=== PATIENT | male | born 1970 | race Caucasian/White ===

== ENCOUNTER 2025-05-19 10:19 | Outpatient (AMB) | payer OTHER, SELFPAY ==
--- NOTE | 2025-05-19 10:26 | MHC.PC.OV ---
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 Allergies mushroom Allergy (Verified 05/19/25 10:30) Anaphylaxis Seasonal Allergies Allergy (Verified 05/19/25 10:30) Itchy Eyes Medication List - Last Reconciled 05/19/25 by PIEDAD Blackburn acyclovir 400 mg PO BID albuterol sulfate 90 mcg/actuation (Ventolin HFA) 2 puffs inhalation Q6H PRN amlodipine 2.5 mg PO DAILY xwsltwb-voligjcdzifpf-uqypngsz 250-250-65 mg (Excedrin Migraine) 1 tab PO Q4-6H PRN coenzyme Q10 50 mg PO DAILY eplerenone 50 mg PO BID ibuprofen 200 mg PO Q6H PRN insulin regular hum U-500 conc (Humulin R U-500 (Concentrated) Insulin) subcutaneously 2 times a day; per sliding scale losartan 100 mg PO DAILY magnesium 200 mg PO DAILY metformin ER (Glucophage XR) 1,000 mg PO BID montelukast 10 mg PO DAILY multivitamin (Daily Multi-Vitamin tablet) 1 tab PO DAILY pravastatin 40 mg PO DAILY Saccharomyces boulardii (Daily Probiotic (S. boulardii)) 250 mg PO BID Tobacco use date assessed: 05/19/25 Dental Screening Dental Screen Date: 05/19/25 Did you have a dental visit in the last 12 months?: Yes Did you have a dental problem in the last 6 months where you did not have access to dental care?: No Was dental information given to patient?: Patient has dentist HPI HPI Comments History of Present Illness Details This is a 55-year-old male with a past medical history of type 2 diabetes, osteoarthritis, hypertension, obesity, asthma, hepatic steatosis and migraines presenting to establish care. He transferred from Dr. Gonzales. Transfer records have not been received yet though he did sign a release. Type 2 diabetes-diagnosed in 2004. Family history of type 2 diabetes in his maternal uncle. He was previously treated with metformin, glimepiride and Byetta. He developed pancreatitis, and Byetta was discontinued. He is followed by endocrinology at [facility]. He has a Dexcom G7 device. His G SD for the past 14 days of 7.8%. Denies recent episodes of hypoglycemia. He takes metformin extended release 1000 mg twice a day and Humulin U 500 sliding scale twice daily. He takes 1 dose around 04:30 and another around 16:00: Mornin-100 takes 60 units 101-150 75 units 151-200 80 units 201-250 85 units 251-300 90 units Over 301 95 units Evening: Same as morning but add 10-15 units for a carb heavy meal or celebration Eye exam is up-to-date. No known diabetic complications. Asthma is stable. He uses albuterol as needed and takes Singulair 10 mg daily. He had a colonoscopy in March 2025. He reports it was normal, and he was told to repeat it in 10 years. Hypertension is treated with losartan 100 mg daily, eplerenone 50 mg twice daily and amlodipine 2.5 mg daily. Patient says he had an echocardiogram done a month ago at [facility]. He says it was normal. Patient says it was ordered because his PCP did not EKG that showed a left bundle branch block. He is on pravastatin 40 mg daily for hyperlipidemia. He has a consult scheduled with sleep Medicine. He has no known history of obstructive sleep apnea. He has chronic fatigue. He is long COVID. He experiences chronic fatigue, brain fog, bilateral tinnitus since COVID-19 infection 4 years ago. His last PCP was in the process of referring him to a long COVID clinic. He would like this referral. He endorses right neck/shoulder pain for the past 13 years. Massage helps. He has a history of bilateral rotator cuff repairs at [facility]. He endorses chronic right knee pain associated with stiffness and difficulty going up and downstairs. He also endorses chronic left ankle and foot pain associated with prior injury. Apparently he broke the left ankle and foot 4 times in the past playing rugby. He sees Dr. Santana. He has custom orthotics. ROS: Constitutional: No unexplained weight loss, fever, chills or night sweats. Eyes: No vision changes, blurry vision, double vision, eye pain, eye redness, eye discharge. ENT: No hearing loss, sneezing, congestion, runny nose or sore throat. Respiratory: No shortness of breath, cough or sputum production. Cardiovascular: No chest pain, chest pressure or chest discomfort. No palpitations . +chronic bilateral lower extremity edema. Gastrointestinal: No anorexia, nausea, vomiting or diarrhea. No abdominal pain or blood in stool. Genitourinary: No dysuria, hematuria, urinary frequency. Neurologic: No headache, dizziness, syncope, unilateral weakness, ataxia, numbness or tingling in the extremities. Musculoskeletal: No muscle pain, back pain, joint pain or swelling. Hematologic/Lymphatics: No bleeding or bruising. No painful lymph nodes. Skin: No rash or itching. Endocrine: No cold or heat intolerance. No polyuria or polydipsia. Psychiatric: No depression or anxiety. No SI/HI. Physical exam: Constitutional: Alert, in no distress. Neck: Supple, Full range of motion. No lymphadenopathy. No palpable thyroid masses. Respiratory: Clear to auscultation. Cardiovascular: S1 S2 regular. No murmurs. No carotid bruits. Neurologic: No focal neurological deficits. Musculoskeletal Full range of motion of the cervical spine. No midline spinal tenderness. Bilateral empty can maneuver. Shoulders nontender to palpation. Shoulder strength 5/5 bilaterally. Full range of motion of the knees. No knee swelling. Psychiatric: Normal mood and affect Extremities: Bilateral 1+ lower extremity edema [facility] Medical History (Updated 05/19/25 @ 13:54 by PIEDAD Blackburn) Mild intermittent asthma Genital herpes Class 3 obesity Pure hypercholesterolemia COVID-19 long hauler Abnormal EKG Left knee pain Left foot pain Right knee pain Right shoulder pain Cervicalgia Essential hypertension Type II diabetes with exterminator use of insulin Family History Brother Alcoholism Substance abuse Social History Housing: Apartment Alcohol intake: current Patient Tobacco Use Status: Never used Tobacco e-Cigarette/Vaping Use: Never Used Second Hand Smoke Exposure: No service: No Current occupational status: employed 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 1. Little interest or pleasure in doing things: not at all 2. Feeling down, depressed, or hopeless: not at all 3. Trouble falling or staying asleep, or sleeping too much: not at all 4. Feeling tired or having little energy: nearly every day 5. Poor appetite or overeating: not at all 6. Feeling bad about yourself - or that you are a failure or have let yourself or your family down: not at all 7. Trouble concentrating on things, such as reading the newspaper or watching television: not at all 8. Moving or speaking so slowly that other people could have noticed. Or the opposite - being so fidgety or restless that you have been moving around a lot more than usual: not at all 9. Thoughts that you would be better off or of hurting yourself in some way: not at all Total score: 3 Depression Screening Interpretation: Negative Depression Screening Done: Yes 78187 - PHQ-9 Billing: Yes Source: Developed by Drs. Thanh Dewitt, Betina Munoz, Iker Hernandez and colleagues, with an educational patti from [employer]. Thrive Questionnaire Date Thrive assessed: 05/19/25 I am a: Patient What is your living situation today?: I have a steady place to live Within the past 12 months, did the food you bought not last and you didn't have the money to get more?: Never true Within the past 12 months, did you worry whether your food would run out before you got money to buy more?: Never true Do you have trouble paying for medicines?: No Do you have trouble getting transportation to medical appointments?: No Do you have trouble paying your heating and electricity bill?: No Do you have trouble taking care of your child, family member or friend?: No Do you have trouble with day-to-day activities such as bathing, preparing meals, shopping, managing finances, etc.?: No Are you currently unemployed and looking for a job?: No Are you interested in more education?: No Please select the resources that you would like help with: None Currently or been in a relationship where the following occur: No concerns reported THRIVE Score: 0 AUDIT C Alcohol Use Questionnaire (AUDIT-C) 1. How often do you have a drink containing alcohol?: Monthly or less 2. How many drinks containing alcohol do you have on a typical day when you are drinking?: 1 or 2 3. How often do you have six or more drinks on one occasion?: Never Total Score: 1 CLIFF-7 AMB Questionnaire CLIFF-7 Date CLIFF - 7 assessed: 05/19/25 Feeling nervous, anxious, or on edge: 0 = Not at all Not being able to stop or control worryin = Not at all Worrying too much about different things: 0 = Not at all Trouble relaxin = Not at all Being so restless that it is hard to sit still: 0 = Not at all Becoming easily annoyed or irritable: 0 = Not at all Feeling afraid as if something awful might happen: 0 = Not at all Total CLIFF-7 score (0-4 normal; 5-9 mild; 10-14 moderate; 15-21 severe): 0 Source: Developed by Drs. Thanh Dewitt, Betina Munoz, Iker Hernandez and colleagues, with an educational patti from [employer]. CLIFF-7 Assessment Billing CLIFF-7 Assessment Tool: CLIFF-7 Assessment 25980 Physical exam (Primary Care) Vital Signs: Last Vital Signs Temp 97.5 F 05/19/25 10:39 Pulse 85 05/19/25 10:39 Resp 16 05/19/25 10:39 BP 128/74 05/19/25 10:39 Pulse Ox 95 05/19/25 10:39 Oxygen Delivery Method Room Air 05/19/25 10:39 BMI result Body Mass Index 44.7 Tobacco/Smoking Status: Tobacco use Status Tobacco use date assessed 05/19/25 05/19/25 10:43 Patient Tobacco Use Status Never used Tobacco 05/19/25 10:43 e-Cigarette/Vaping Use Never Used 05/19/25 10:43 PHQ-9: PHQ-9 Score PHQ-9: Total score 3 05/19/25 10:52 Depression Screening Interpretation: Negative Thrive Assessment: Date of Thrive Assessment Date Thrive assessed 05/19/25 05/19/25 10:28 Currently or been in a relationship where the following occur: No concerns reported Office Procedures EKG Details: EKG shows normal sinus rhythm with left anterior fascicular block and minimal voltage criteria for LVH, 77 beats per minute 52212-[id number], Complete Coding Level of Care Code New Pt Level 5 (48125) Complex EM visit Add On G2211 Diagnoses COVID-19 remi gould U09.9 Essential hypertension I10 Abnormal EKG R94.31 Type II diabetes with half-way use of insulin E11.9; Z79.4 Cervicalgia M54.2 Right shoulder pain M25.511 Right knee pain M25.561 Left foot pain M79.672 Left knee pain M25.562 Pure hypercholesterolemia E78.00 CPT Codes EKG - CPT: 80817-Ksyirpivwgvnrwdji, Complete ([id number]) Additional Codes CLIFF-7 Assessment Billing - CLIFF-7 Assessment Tool: CLIFF-7 Assessment 41853 ([id number]) PHQ-9 - 49715 - PHQ-9 Billing: Yes ([id number]) Time Spent (min) 62 Comment Direct patient care, completing documentation, placing orders Assessment & Plan Assessment & Plan (1) COVID-19 remi gould: Code(s): U09.9 - Post COVID-19 condition, unspecified Category: Medical Plan: Refer to [facility] clinic. (2) Essential hypertension: Code(s): I10 - Essential (primary) hypertension Category: Medical Plan: Controlled. Continue current regimen. Continue efforts at weight loss and low-sodium diet. (3) Abnormal EKG: Code(s): R94.31 - Abnormal electrocardiogram [ECG] [EKG] Category: Medical Plan: Patient reports having a normal echocardiogram at [facility] a month ago. I am waiting on his transfer records. Discussed left anterior fascicular block. Denies anginal symptoms. I will check a coronary artery calcium CT. 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 We discussed immunizations recommended. Followed by endocrinology. Continue current medication per endocrinology. (5) Cervicalgia: Code(s): M54.2 - Cervicalgia Category: Medical (6) Right shoulder pain: Code(s): M25.511 - Pain in right shoulder Category: Medical (7) Right knee pain: Code(s): M25.561 - Pain in right knee Category: Medical (8) Left foot pain: Code(s): M79.672 - Pain in left foot Category: Medical (9) Left knee pain: Code(s): M25.562 - Pain in left knee Category: Medical (10) Pure hypercholesterolemia: Code(s): E78.00 - Pure hypercholesterolemia, unspecified Category: Medical Plan: Check lipid profile. Recommended Mediterranean diet. Continue pravastatin. Plan X-ray ordered for evaluation of musculoskeletal sons. We will discuss referral to physiatry/Orthopedics and Physical therapy based on results. Follow up in 6 weeks. Orders: Orders Comprehensive Met. Panel Today E11.9 - Type 2 diabetes mellitus without complications, I10 - Essential (primary) hypertension, Z79.4 - skilled nursing (current) use of insulin Lipid Panel Today E11.9 - Type 2 diabetes mellitus without complications, E78.5 - Hyperlipidemia, unspecified, I10 - Essential (primary) hypertension, Z79.4 - skilled nursing (current) use of insulin TSH reflex Free T4 Today E11.9 - Type 2 diabetes mellitus without complications, I10 - Essential (primary) hypertension, Z79.4 - skilled nursing (current) use of insulin Complete Blood Count no Diff Today E11.9 - Type 2 diabetes mellitus without complications, I10 - Essential (primary) hypertension, Z79.4 - skilled nursing (current) use of insulin XR cervical spine 4V Today M25.511 - Pain in right shoulder, M54.2 - Cervicalgia XR shoulder RT min 2V Today M25.511 - Pain in right shoulder CT Coronary Calcium Score Today E11.9 - Type 2 diabetes mellitus without complications, I10 - Essential (primary) hypertension, R94.31 - Abnormal electrocardiogram [ECG] [EKG], Z79.4 - remote 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 (current) use of insulin Microalbumin, Random (w Creat) Today E11.9 - Type 2 diabetes mellitus without complications, I10 - Essential (primary) hypertension, Z79.4 - skilled nursing (current) use of insulin Hemoglobin A1c Today E11.9 - Type 2 diabetes mellitus without complications, I10 - Essential (primary) hypertension, R73.9 - Hyperglycemia, unspecified, Z79.4 - remote 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
[2025-05-19 10:39] VITALS: BP 128/74; PULSE 85; RESP 16; TEMP 36.4; O2SAT 95; BMI 44.7
--- OUTSIDE RECORDS SUMMARY | 2025-05-19 11:37 | XMS_ITS | Continuity of Care Document ---
Author Organization [facility] Address [address] [place] [address] Insurance Providers Payer Plan Claims Address Claims Phone Policy Number Group Number Relation Employer Guarantor Name Guarantor Guarantor Address Guarantor Phone [employer] D TAYLOR F[facility] [facility] [address], [place] [address] [id number] [facility] [address] [facility] [address], [place] [address] [id number] Self Timmy Fernández 1970 [address] [id number] Problems Unknown Problems Results Test Result Date/Time Value / Unit Interp. Refere nce Range Comp. Metabolic Panel (14)[3 02723] Collected: 10/14/2024 03:02 PM Specimen Received: 10/14/2024 05:00 AM Source: [facility] Glucose [[id number]] 10/15/2024 03:26 AM 76 mg/dL 70-99 mg/dL BUN [159606] 10/15/2024 03:26 AM 12 mg/dL 6-2 4 mg/dL Creatinine [113538] 10/15/2024 03:26 AM 0.80 mg/dL 0.76-1.27 mg/dL eGFR [176569] 10/15/2024 03:26 AM 105 mL/min/1.73 >59 mL/min/1.73 BUN/Creatinine Ratio [536071] 10/15/2024 03:26 AM 15 9-20 Sodium [145697] 10/15/2024 03:26 AM 140 mmol/L 134-144 mmol/L Potassium [739022] 10/15/2024 03:26 AM 4.6 mmol/L 3.5-5.2 mmol/L Chloride [931124] 10/15/2024 03:26 AM 102 mmol/L 96-106 mmol/L Carbon Dioxide, Total [701064] 10/15/2024 03:26 AM 24 mmol/L 20-29 mmol/L Calcium [352388] 10/15/2024 03:26 AM 9.6 mg/dL 8.7-10.2 mg/dL Protein, Total [184231] 10/15/2024 03:26 AM 6.5 g/dL 6.0-8.5 g/dL Albumin [701768] 10/15/2024 03:26 AM 4.2 g/dL 3.8-4.9 g/dL Globulin, Total [655116] 10/15/2024 03:26 AM 2.3 g/dL 1.5-4.5 g/dL Bilirubin, Total [483360] 10/15/2024 03:26 AM 0.5 mg/dL 0.0-1.2 mg/d L Alkaline Phosphatase [510000] 10/15/2024 03:26 AM 65 IU/L 44-121 IU/L AST (SGOT) [298225] 10/15/2024 03:26 AM 27 IU/L 0-40 IU/L ALT (SGPT) [340523] 10/15/2024 03:26 AM 39 IU/L 0-44 IU/L Lipid Panel[917625] Collected: 10/14/2024 03:02 PM Specimen Received: 10/14/2024 05:00 AM Source: [facility] Cholesterol, Total [[id number]] 10/15/2024 03:26 AM 130 mg/dL 100-199 mg/d L Triglycerides [657733] 10/15/2024 03:26 AM 123 mg/dL 0-149 mg/dL HDL Cholesterol [920125] 10/15/2024 03:26 AM 38 mg/dL L >39 mg/dL VLDL Cholesterol Nitesh [536199] 10/15/2024 03:26 AM 22 mg/dL 5-40 mg/dL LDL Chol Calc (NIH) [143973] 10/15/2024 03:26 AM 70 mg/dL 0-99 mg/dL Albumin/Creatinine Ratio,Uri ne[236416] Collected: 10/14/2024 03:02 PM Specimen Received: 10/14/2024 05:00 AM Source: [facility] Creatinine, Urine [[id number]] 10/15/2024 11:09 PM 110.1 mg/dL Not Estab. m g/dL Albumin, Urine [152749] 10/15/2024 10:53 PM 15.6 ug/mL Not Estab. ug/mL Alb/Creat Ratio [928739] 10/15/2024 11:09 PM 14 mg/g creat 0-29 mg/g creat Normal: 0 - 29 Moderately in creased: 30 - 300 Severely increased: >300 Hemoglobin A1c[269507] Collected: 10/14/2024 03:02 PM Specimen Received: 10/14/2024 05:00 AM Source: [facility] Hemoglobin A1c [[id number]] 10/15/2024 03:39 AM 7.6 % H 4.8-5.6 % . Prediabetes: 5.7 - 6.4 Adry betes: >6.4 Glycemic control for adults with diabetes: 7.0 C-Peptide, Serum[[id number]] Collected: 10/14/2024 03:02 PM Specimen Received: 10/14/2024 05:00 AM Source: [facility] C-Peptide, Serum [[id number]] 10/15/2024 12:58 PM 0.3 ng/mL L 1.1-4.4 ng/m L C-Peptide reference interval is for fasting patients. Allergies, adverse reactions, alerts No known allergies and adverse reactions Medications No administered medications reported Vital Signs No vital signs reported Social History No smoking Hx information available
--- OUTSIDE RECORDS SUMMARY | 2025-05-19 11:37 | XMS_ITS | Clinical Summary ---
Author Organization [facility] Address [address] [facility] [address] [place] [phone] Phone Care Team Providers Care Manifest/Order Organizer Print Orders Name Role Phone Saw Gonzales MD Primary Care Provider + Allergies Active Allergy Reactions Criticality Noted Date Comments Canagliflozin Other (See Comments) 07/09/2023 [facility] Dust Itching,Rash,Sneezing Low 06/22 Chlorthalidone 07/09/2023 hyperglycemic Exenatide Other (See Comments) 10/26/2018 pancreatitis Morphine Itching 07/09/2023 Mushroom Shortness Of Breath High 07/09/2023 Pioglitazone Weight Gain Low 07/09/2023 Pollen Extracts 07/09/2023 Medications losartan (COZAAR) 100 MG tablet Take 1 tablet by mouth daily. 07/16/20 22 Active amLODIPine (NORVASC) 2.5 MG tablet Take 2.5 mg by mouth daily. Active pravastatin (PRAVACHOL) 40 MG tablet Take 40 mg by mouth daily. Active eplerenone (INSPRA) 50 MG tablet Take 50 mg by mouth 2 (two) times a day. Active montelukast (SINGULAIR) 10 mg tablet Take 10 mg by mouth nightly at bedtime. Active albuterol 90 mcg/actuation inhaler Inhale 2 puffs into the lungs every 6 (six) hours as needed. Active DEXCOM G7 SENSOR DeviIndications: Type 2 diabetes mellitus with hyperglycemia, with long-term current use of insulin 1 each by Miscellaneous route Every 10 Days. 9 each 3 08/12/20 24 Active metFORMIN (GLUCOPHAGE-XR) 500 MG 24 hr tabletIndication s:Type 2 diabetes mellitus with hyperglycemia, with long-term current use of insulin Take 2 tablets (1,000 mg total) by mouth 2 (two) times a day before meals. 360 tablet 3 10/19/19 25 Active insulin regular U-500 CONC (HUMULIN R, KWIKPEN) 500 unit/mL (3 mL) subcutaneous injection penIndications:T ype 2 diabetes mellitus with hyperglycemia, with long-term current use of insulin INJECT SUBCUTANEOUSLY 95 TO 115 UNITS DAILY BEFORE BREAKFAST AND 65 TO 85 UNITS DAILY BEFORE DINNER, PLUS FIVE UNITS TO PRIME PEN WITH EACH DOSE 36 mL 3 10/29/19 25 Active Active Problems Problem Noted Date Diagnosed Date Hypercholesterolemia 07/17/2023 07/17/2023 Hypertension 07/17/2023 07/17/2023 Type 2 diabetes mellitus wit h hyperglycemia, with long-term current use of insulin 07/17/2023 07/17/2023 Assessment & Plan (02/24/2025 9:57 PM EDT): Control remains suboptimal but improved with average glucose 187, GMI 7.8, in target 43% of the day. No frequent or severe hypoglycemia. He lost another 6 pounds since September, lost altogether 21 pounds off of maximum weight of 330 pounds. Although we were unable to get written records from 2011 patient is pretty sure that he had pancreatitis while on Byetta for about 5 years. For this reason I would not recommend rechallenging with a GLP-1 or Mounjaro. His C-peptide level was low with blood sugar in the 70s back in 09/2024. Eliceo 65 antibody was undetectable in 12/2024. He has blood sugar trends by CGM remain the same duke phenomenon between 4:30 AM to 6 AM, trending down to the 70s by noon and trending up after the evening meal from 6 PM to midnight and stays high over 200s overnight. Patient is using U-500 insulin by sliding scale starting at 70 units at 4:30 AM and 85 units at 4:30 PM, increasing dose by 5 units for every 50 points of blood sugar over 100. He remains on max dose of metformin as well. -Decrease a.m. sliding scale by 10 units to prevent lows by noon -Move 4:30 PM U-500 insulin to noontime because of the late effect of U-500 and try to improve blood sugars late p.m. -Review CGM download in 2 weeks -If no improvement in blood sugar in relation to the evening meal, would add rapid acting insulin 15 minutes before the evening meal. -Reviewed symptoms, prevention and treatment of hypoglycemia. -Call with blood sugar problems Assessment & Plan (10/19/2024 11:15 AM EST): Control continues to improve based his dexcom G7 sensor download. No frequent or severe hypoglycemia. He has found that if he takes his insulin about 90 minutes prior to meals this is doing well to help prevent prandial glucose spikes, especially in the morning with the duke phenomenon as well. Will have him continue to do this. Will look into getting his records from [facility] from 2011 to see if it is possible to determine the cause of his pancreatitis or if he truly had pancreatitis. If he didn't or the pancreatitis was caused by gallstones we can consider the use of a GLP-1 to help with his glucose levels and also possible weight loss. Continue to work on eating healthy and trying to be active as possible. To call or message with any issues managing is glucose levels. Up to date with [facility] [employer]. He has been having an issue with a callous on the bottom of his left foot. Will send a referral for him to see podiatry to have this taken care of. Assessment & Plan (04/15/2024 12:47 AM EDT): Control continues to improve based upon reviewing the [employer] data on the patient's phone. He does not want to download the andrew 3 as his insurance is charging him $100 to review the data. No frequent or severe hypoglycemia. He has been working on taking his breakfast insulin 2 hours prior to eating. This is doing well with helping to prevent such high spikes in the morning after breakfast. Will have him continue to do this. Continue to work on eating healthy and trying to be active as possible. To call or message with any issues managing is glucose levels. Up to date with opho. Will do lab with PCP at next visit Assessment & Plan (01/22/2024 10:47 PM EDT): Control improved by andrew 3 CGM download. Average glucose 193, GMI 7.9%. 42% in target but 45% still high. Much less very high blood sugars at 13% and no frequent lows. Trends are similar with going up between 3 AM to 6 AM then best blood sugars by noon and then another rise by 3 PM and further rise by 9 PM. Patient is using U-500 insulin 115 units before breakfast and between 65 to 85 units before dinner. He tries to inject 45 to 60 minutes before start of the meal with better effect than 30 minutes before meal. He had 35 pounds weight gain when he was using Actos with insulin in the past and had pancreatitis on Byetta. He reports severe yeast infection with Invokana in the past. He was wondering if he could try Mounjaro ( Nepbound) but I did not feel comfortable trying this since similar side effect profile when it comes to the pancreas. His paternal grandmother of pancreatitis. We did talk about maybe trying Jardiance when his blood sugars are better but he still has risk of yeast infection. For now we decided to adjust his U-500 insulin by adding 10 to 15 units before lunch. If having low sugars by lunchtime he would decrease the breakfast insulin by 5 to 10 units. If late p.m. blood sugars did not improve by adding lunch insulin he would increase the dinner insulin by 5 to 10 units. Will continue current metformin dose. Encouraged to call with blood sugar problems. He had blood work last week by PCP, waiting for results. Blood work and office visits are quite costly to patient at present and he would like to limit lab orders. Reviewed symptoms, prevention and treatment of hypoglycemia. Eye exam scheduled for tomorrow. Urine microalbumin was normal in 08/2023. LDL at target, HDL low, triglycerides up at 314 while normal thyroid function and B12 was normal in 08/2023. Assessment & Plan (09/16/2023 9:12 AM EST): Control is improving based upon the patient's freestyle andrew 2 sensor download. No frequent or severe hypoglycemia. Discussed upgrading his andrew from the 2 to the 3 which will allow for continuous reading without having to scan. Will send the prescription to his pharmacy. Will adjust his insulin higher in the evening to help with the highs after dinner. Continue to work on eating healthy and trying to be active as possible. To call or message with any issues managing is glucose levels. Up to date with nieves. Had blood work done at [facility] will call to get results Assessment & Plan (07/17/2023 4:06 PM EDT): He was diagnosed with type 2 diabetes 18 years ago (2004) on blood work after having a two week period of dizziness. He has hypoglycemia unawareness but no other long-term complications from history. His control is suboptimal based upon his freestyle andrew 2 sensor download. He is currently using metformin and U-500 insulin. He has been on metformin since his diagnosis. He has been on U-500 insulin for the last 18 months. When initially diagnosed he was put on metformin, glipizide, and byetta. His A1C was 5.1% while on this. While using byetta he developed acute pancreatis based upon his blood work. Once stopping the byetta the pancreatitis resolved. He was also taken off of glipizide. He was then switched to insulin and within a 3 month period gained 40 pounds. He was then put on invokana and developed severe gential infections for 2 years. The invokana was stopped and actos was started. He gained 30 pounds in 3 months. With this additional weight gain the actos was stopped. He was then started on U-500 insulin and has been on for the last 18 mounths. He is using the U-500 through a sliding scale : BG 70-100 he would take 35 units, BG 100-150 take 60 units, BG 150-200 take 65 units, BG 201-250 take 70 units, 251-300 take 75 units, and above 300 take 90 units. He has been loosely following this scale and adding 10 units at breakfast and dinner to try and manage his levels. He has had some severe lows to which he doesn't feel and only knows of the low due to his andrew sensor. He will correct with juice or glucose tablets and then is fine. Discussed the importance of preventing low glucose levels especially with lack of symptoms. Will try changing his U-500 insulin dosing from a sliding scale to set dosing twice a day. Will have him take 90 units in the morning and 60 units at dinner. He will continue with this dosing for at least a week. He will send a message through the patient gateway with any issues with the dosing change. Continue to work on eating healthy and being active. Up to date with ophtho. Labs ordered today. 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 It is thought it is due long haul covid symptoms. 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 He has a friend who is working with a university medical [facility] in [place] to help with their long haul covid symptoms. Discussed has he taken a look at the clinic in [place]. He didn't realize there was a clinic there. I will send him the clinic information through the gateway and he will look into this Encounters Date Type Department Care Team Description 02/21/2025 8:20 AM EDT Office Visit [facility] [address] [place] [address] Lupe Hooks MD Type 2 diabetes mellitus with hyperglycemia, with long-term current use of insulin (Primary Dx); assisted current use of insulin; assisted current use of oral hypoglycemic drug 02/17/2025 Orders Only [facility] [address] [place] [address] Provider, MD Elva from Last 3 Months Social History Tobacco Use Types Packs/Day Years Used Date Smoking Tobacco: Never Smokeless Tobacco: Never Tobacco Cessation:Counseling Given: Not Answered Alcohol Use Standard Drinks/Week Comments Yes 0 (1 standard drink = 0.6 oz pur e alcohol) occasional Education Answer Date Recorded Are you interested in more education? Not on esthela e 03/13/2023 Are you concerned about learning? Not on file 03/13/2023 No 03/13/2023 No 03/13/2023 Digital Access Answer Date Recorded No 03/13/2023 No 03/13/2023 Reliable internet access at home? Not on file 03/13/2023 Device with a working camera? Not on file Sex and Gender Information Value Date Recorded Sex Assigned at Not on file Legal Sex Male 10:22 AM EDT Gender Identity Not on file Sexual Orientation Not on file Last Filed Vital Signs Vital Sign Reading Time Taken Comments Blood Pressure 128/70 02/21/2025 8:08 AM EDT Pulse 78 02/21/2025 8:08 AM EDT Temperature 36.3 C (97.4 F) 07/12/2024 8:00 AM EDT Respiratory Rate - - Oxygen Saturation 99% 02/21/2025 8:08 AM EDT Inhaled Oxygen Concentration - - Weight 140.4 kg (309 lb 9.6 oz) 02/21/2025 8:08 AM EDT Height 175.3 cm (5' 9.02 ) 02/21/2025 8:08 AM ED T Body Mass Index 45.7 02/21/2025 8:08 AM EDT Plan of Treatment Upcoming Encounters Date Type Department Care Team (Late st Contact Info) Description 05/24/2025 8:20 AM EDT Office Visit [facility] [address] [place] [address] [place] [address] Zaira Davies PA-C [address] [place] [phone] 11/29/2025 8:20 AM EDT Office Visit [facility] [address] [place] [address] [place] [address] Lupe Hooks MD [address] [place] [phone] [email or web address] Health Maintenance Due Date Last Done Comments Adult Td,Tdap Booster 1970 HEMOGLOBIN A1C 1970 DEPRESSION SCREENING 1982 HEPATITIS C SCREENING 01/21/1988 HIV ONE-TIME SCREENING (18-65 YEARS) 01/21/1988 PNEUMOCOCCAL VACCINES (50+ years) (1 of 2 - PCV) 1989 COLOGUARD 2015 COLONOSCOPY 2015 COLORECTAL CANCER SCREENING 2015 FIT TEST 2015 FOBT 2015 SIGMOIDOSCOPY 2015 VIRTUAL COLONOSCOPY 2015 ZOSTER VACCINES (1 of 2) 01/21/2020 DIABETIC EYE EXAM 07/17/2023 COVID-19 VACCINE ( - season) 2024 INFLUENZA VACCINE (#1) 2025 POTASSIUM LEVEL 07/08/2025 07/08/2024, 0410/2023, 09/18/2023 BLOOD PRESSURE 08/23/2025 02/21/2025 CREATININE LEVEL 10/15/2025 10/15/2024, , 01/02/2024, Additional history exists SMOKING STATUS SCREENING (Once After 26 Yrs) Completed 02/21/2025 HEPATITIS A VACCINES Aged Out No long er eligible based on patient's age to complete this topic HIB VACCINES Aged Out No longer eligi ble based on patient's age to complete this topic MENINGOCOCCAL VACCINES (ACWY) Aged Out No longer eligible based on patient's age to complete this topic MENINGOCOCCAL VACCINES (B) Aged Out N o longer eligible based on patient's age to complete this topic Medical Devices Not on file Procedures Procedure Name Priority Date/Time Associated Diagnosis Comments COMPREHENSIVE METABOLIC PANEL Routine 10/15/2024 4:48 PM EST BASIC METABOLIC PANEL Routine 07/08/2024 8:16 AM EDT from Last 3 Months or Most Recently Relevant to Health Maintenance Results * Comprehensive metabolic panel (10/15/2024 4:48 PM EST) us Historical Provider LAB BLOOD ORDERABLES Estefania l Result * Basic metabolic panel (07/08/2024 8:16 AM EDT) Saw Gonzales MD LAB BLOOD ORDERABLES Fin al Result from Last 3 Months or Most Recently Relevant to Health Maintenance Insurance O O H[place] [address] [address] HMO Care Teams Manifest/Order Organizer Print Orders Relationship Specialty Start Date End Date Saw Gonzales MD [address] [place] [address] PCP - General Internal Medicine 01/10/23 Additional Source Comments The information contained in this document represents components of the legal health record. It is not the complete legal health record.[facility]
== END 2025-05-19 11:41 | disposition home or self-care (01) ==
LOC: HO.HMCFM 10:19
PROVIDERS: PCP Physician Assistant Medical; Visit Provider Physician Assistant Medical
DX: E11.9 Type 2 diabetes mellitus without complications (principal); Z79.4 Long term (current) use of insulin; U09.9 Post COVID-19 condition, unspecified; I10 Essential (primary) hypertension; R94.31 Abnormal electrocardiogram [ECG] [EKG]; M54.2 Cervicalgia; M25.511 Pain in right shoulder; M25.561 Pain in right knee; M79.672 Pain in left foot; M25.562 Pain in left knee; E78.00 Pure hypercholesterolemia, unspecified

== ENCOUNTER → 2025-05-19 10:19 | Outpatient (BNVA) | payer OTHER, SELFPAY | PROVIDERS: PCP Physician Assistant Medical; Visit Provider Physician Assistant Medical | DX: U09.9 Post COVID-19 condition, unspecified (principal); I10 Essential (primary) hypertension; R94.31 Abnormal electrocardiogram [ECG] [EKG]; E11.9 Type 2 diabetes mellitus without complications; M54.2 Cervicalgia; M25.511 Pain in right shoulder; M25.561 Pain in right knee; M79.672 Pain in left foot; M25.562 Pain in left knee; E78.00 Pure hypercholesterolemia, unspecified; Z79.4 Long term (current) use of insulin; Z79.899 Other long term (current) drug therapy; Z13.31 Encounter for screening for depression; Z13.39 Encounter for screening examination for other mental health and behavioral disorders | CPT/HCPCS: 93005; 96127 ==

== ENCOUNTER 2025-05-28 07:55 | Outpatient (REF) | payer OTHER, SELFPAY ==
--- OUTSIDE RECORDS SUMMARY | 2025-05-24 08:20 | XMS_ITS | Encounter Summary ---
Author Organization [facility] Address [address] [facility] [address] [place] [phone] Phone Care Team Providers Care Warehouse Packer Name Role Phone Staci Garcia Primary Care Provide r Reason for Visit * Reason Comments Diabetes Mellitus Encounter Details Date Type Department Care Team (Late st Contact Info) Description 05/24/2025 8:20 AM EDT Office Visit [facility] [address] [place] [address] Zaira Davies PA-C [address] [place] [address] [email or web address] Type 2 diabetes mellitus with hyperglycemia, with long-term current use of insulin (Primary Dx) Social History Tobacco Use Types Packs/Day Years Used Date Smoking Tobacco: Never Smokeless Tobacco: Never Alcohol Use Standard Drinks/Week Comments Yes 0 [...] on file Sexual Orientation Not on file documented as of this encounter Last Filed Vital Signs Vital Sign Reading Time Taken Comments Blood Pressure 134/66 05/24/2025 8:23 AM EDT Pulse 98 05/24/2025 8:23 AM EDT Temperature - - Respiratory Rate - - Oxygen Saturation 97% 05/24/2025 8:23 AM EDT Inhaled Oxygen Concentration - - Weight 140.1 kg (308 lb 12.8 oz) 05/24/2025 8:23 AM EDT Height - - Body Mass Index 45.58 02/21/2025 8:08 AM EDT documented in this encounter Patient Instructions * Patient Instructions* Zaira Davies PA-C - 05/24/2025 8:20 AM EDT Go to [employer] to create an omnipod ID and password, and also set up [employer] account Bring a new insulin pen documented in this encounter Progress Notes * Zaira Davies PA-C - 05/24/2025 8:20 AM EDT Subjective: Patient ID: Timmy Fernández is a 55 y.o. male. In the interval since the last visit, no changes in health Hemoglobin A1C: Reviewed last A1C from 10/16 was 7.6%, has orders from new PCP. Blood glucose monitoring: using the dexcom G7, average reading is 194, time in range is 42%, time high is 42%, time veryhigh is 16%. Hypoglycemia: will start to feel low around 90. Problems with medications: none. Recent weight changes: no change. Diet : 3 meals a day, occasional HS snack of preztels and peanut butter, healthy choices, portion control is good. Activity: doing more outside but is still not as much prior to Covid. Optho: scheduled to see in June. Foot: no issues. Injection/pump site & timing:rotating on abdomen for insulin, taking 2 hour before eating, no lipohypertrophy or bruising Current Outpatient Medications Ordered in [facility]: acyclovir (ZOVIRAX) 400 MG tablet, Take 400 mg by mouth 2 (two) times a day. albuterol 90 mcg/actuation inhaler, Inhale 2 puffs into the lungs every 6 (six) hours as needed. amLODIPine (NORVASC) 2.5 MG tablet, Take 2.5 mg by mouth daily. DEXCOM G7 SENSOR Shanna, 1 each by Miscellaneous route Every 10 Days. eplerenone (INSPRA) 50 MG tablet, Take 50 mg by mouth 2 (two) times a day. insulin regular U-500 CONC (HUMULIN R, KWIKPEN) 500 unit/mL (3 mL) subcutaneous injection pen, INJECT SUBCUTANEOUSLY 95 TO 115 UNITS DAILY BEFORE BREAKFAST AND 65 TO 85 UNITS DAILY BEFORE DINNER, PLUS FIVE UNITS TO PRIME PEN WITH EACH DOSE losartan (COZAAR) 100 MG tablet, Take 1 tablet by mouth daily. metFORMIN (GLUCOPHAGE-XR) 500 MG 24 hr tablet, Take 2 tablets (1,000 mg total) by mouth 2 (two) times a day before meals. montelukast (SINGULAIR) 10 mg tablet, Take 10 mg by mouth nightly at bedtime. pravastatin (PRAVACHOL) 40 MG tablet, Take 40 mg by mouth daily. Review of Systems Constitutional: Positive for fatigue. Negative for unexpected weight change. Eyes: Positive for wears glasses. Negative for unexpected vision change. Respiratory: Negative for cough and shortness of breath. Cardiovascular: Positive for leg swelling. Negative for chest pain. Gastrointestinal: Negative for constipation and diarrhea. Genitourinary: Negative for nocturia. Neurological: Negative for numbness (tingling or paraesthesia). Psychiatric/Behavioral: Negative for sleep disturbance. Musculoskeletal: No leg cramps Objective: Physical Exam Vitals reviewed. Constitutional: Appearance: Normal appearance. Skin: General: Skin is warm. Neurological: Mental Status: He is alert and oriented to person, place, and time. Psychiatric: Mood and Affect: Mood normal. Behavior: Behavior normal. Assessment/Plan: Problem List Items Addressed This Visit Type 2 diabetes mellitus with hyperglycemia, with long-term current use of insulin - Primary Control continues to improve based his dexcom G7 sensor download. No frequent or severe hypoglycemia. With the continued variation in glucose levels discussed trying the omnipod 5 insulin pump to help regulate his glucose levels a little more. He likes the idea of trying this. Will give him an omnipod 5 starter kit from the office to try this for a couple weeks. He knows using U-500 insulin in the pump is off label use but wants to try it to see if this help. He will set up his [employer] account information and omnipod account information before the training visit. Continue to work on eating healthy and trying to be active as possible. To call or message with any issues managing is glucose levels. Up to date with nieves, scheduled to see in June. Will do labs with new PCP * Chasity Nash MD - 05/24/2025 8:20 AM EDT Subject Line: Provider Attestation I have reviewed the notes, assessments, and/or procedures performed by PIEDAD Renteria. I concur with her documentation of Timmy Fernández. documented in this encounter Miscellaneous Notes * Assessment & Plan Note - Zaira Davies PA-C - 05/26/2025 4:41 PM EDTAssociated Problem(s): Type 2 diabetes mellitus with hyperglycemia, with long-term current use of insulin Control continues to improve based his dexcom G7 sensor download. No frequent or severe hypoglycemia. With the continued variation in glucose levels discussed trying the omnipod 5 insulin pump to help regulate his glucose levels a little more. He likes the idea of trying this. Will give him an omnipod 5 starter kit from the office to try this for a couple weeks. He knows using U-500 insulin in the pump is off label use but wants to try it to see if this help. He will set up his [employer] account information and omnipod account information before the training visit. Continue to work on eating healthy and trying to be active as possible. To call or message with any issues managing is glucose levels. Up to date with nieves, scheduled to see in June. Will do labs with new PCP documented in this encounter Plan of Treatment Upcoming Encounters Date Type Department Care Team (Late st Contact Info) Description 06/29/2025 12:30 PM EDT Office Visit [facility] [address] [place] [address] Zaira Davies PA-C [address] [place] [phone] 07/22/2025 8:00 AM EDT Office Visit [facility] [address] [place] [address] Zaira Davies PA-C [address] [place] [phone] 11/29/2025 8:20 AM EDT Office Visit [facility] [address] [place] [address] Lupe Hooks MD [address] [place] [phone] documented as of this encounter Visit Diagnoses Diagnosis Type 2 diabetes mellitus with hyperglycemia, with long-term current use of insulin- Primary documented in this encounter Care Teams Warehouse Packer Relationship Specialty Start Date End Date Staci Garcia PA [address] [place] [address] [place] [address] PCP - General Physician Administrative Office Specialist 05/24/25 documented as of this encounter Additional Source Comments The information contained in this document represents components of the legal health record. It is not the complete legal health record.[facility]
--- NOTE | ~2025-05-28 | XR_ITS ---
EXAMINATION: XR ANKLE 3 OR MORE VIEWS LEFT, XR FOOT 3 OR MORE VIEWS LEFT HISTORY: M79.672 - Pain in left foot COMPARISON: There are no prior studies available for comparison. FINDINGS: Six views of the left foot and ankle are submitted. Osseous mineralization is normal. There is an old ununited fracture deformity versus an accessory ossicle at the base of the 5th metatarsal. There may be a fracture of the talus, of indeterminate age. There is severe degenerative change involving the talonavicular joint, and milder changes in the remainder of the midfoot. There is a plantar calcaneal spur. The soft tissues are unremarkable. XR/XR foot LT min 3V IMPRESSION: 1. 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 2. Possible talar fracture of indeterminate age. This could be further evaluated with CT if there is a history of an acute injury. 3. Severe degenerative change of the talonavicular joint. Electronically signed by: Thanh Walsh MD 05/30/2025 08:08 AM EDT
--- NOTE | ~2025-05-28 | XR_ITS ---
EXAMINATION: XR CERVICAL SPINE 4-5 VIEWS HISTORY: M54.2 - Cervicalgia COMPARISON: There are no prior studies available for comparison. FINDINGS: AP, lateral, bilateral oblique, and open-mouth odontoid views of the cervical spine are submitted. Osseous mineralization is normal. Seven cervical vertebral bodies are identified maintaining normal height and alignment without evidence of fracture or subluxation. There is diffuse moderate degenerative disc disease with disc space narrowing and osteophyte formation. There is narrowing of the bilateral C6-7 neural foramen secondary to facet osteoarthritis and uncovertebral joint hypertrophy. The remaining neural foramen are patent. The odontoid and lateral masses of C1 are intact. There is no prevertebral soft tissue swelling. XR/XR cervical spine 4V IMPRESSION: Degenerative changes of the cervical spine as described. Electronically signed by: Thanh Walsh MD 05/30/2025 08:11 AM EDT
--- NOTE | ~2025-05-28 | XR_ITS ---
EXAMINATION: XR ANKLE 3 OR MORE VIEWS LEFT, XR FOOT 3 OR MORE VIEWS LEFT HISTORY: M79.672 - Pain in left foot COMPARISON: There are no prior studies available for comparison. FINDINGS: Six views of the left foot and ankle are submitted. Osseous mineralization is normal. There is an old ununited fracture deformity versus an accessory ossicle at the base of the 5th metatarsal. There may be a fracture of the talus, of indeterminate age. There is severe degenerative change involving the talonavicular joint, and milder changes in the remainder of the midfoot. There is a plantar calcaneal spur. The soft tissues are unremarkable. XR/XR ankle LT min 3V IMPRESSION: 1. 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 2. Possible talar fracture of indeterminate age. This could be further evaluated with CT if there is a history of an acute injury. 3. Severe degenerative change of the talonavicular joint. Electronically signed by: Thanh Walsh MD 05/30/2025 08:08 AM EDT
--- NOTE | ~2025-05-28 | XR_ITS ---
EXAMINATION: XR SHOULDER 2 OR MORE VIEWS RIGHT HISTORY: M25.511 - Pain in right shoulder COMPARISON: There are no prior studies available for comparison. FINDINGS: Four views of the right shoulder are submitted. Osseous mineralization is normal. There are suture anchors in the humeral head. The patient is status post resection of the distal clavicle. There is no fracture or dislocation. The glenohumeral joint space is preserved. The soft tissues are unremarkable. XR/XR shoulder RT min 2V IMPRESSION: Postsurgical changes as described. Otherwise unremarkable examination of the right shoulder. Electronically signed by: Thanh Walsh MD 05/30/2025 08:01 AM EDT
--- NOTE | ~2025-05-28 | XR_ITS ---
EXAMINATION: XR KNEE 3 VIEWS RIGHT HISTORY: M25.561 - Pain in right knee COMPARISON: There are no prior studies available for comparison. FINDINGS: Four views of the right knee are submitted. Osseous mineralization is normal. There is no fracture or dislocation. There is severe osteoarthritis of the patellofemoral compartment with joint space narrowing and osteophyte formation. Milder changes are noted involving the lateral compartment. The soft tissues are unremarkable. There is no joint effusion. XR/XR knee RT 3V IMPRESSION: Osteoarthritis of the right knee as described. Electronically signed by: Thanh Walsh MD 05/30/2025 08:09 AM EDT
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
--- OUTSIDE RECORDS SUMMARY | 2025-05-28 08:00 | XMS_ITS | Clinical Summary ---
Author Organization [facility] Address [address] [facility] [address] [place] [phone] Phone Care Team Providers Care Mold Tooler Name Role Phone Staci Garcia Primary Care Provide r Allergies Active Allergy Reactions Criticality Noted Date [...] DOSE 36 mL 3 10/29/19 25 Active acyclovir (ZOVIRAX) 400 MG tablet Take 400 mg by mouth 2 (two) times a day. 05/19/20 25 Active Active Problems Problem Noted Date Diagnosed Date Hypercholesterolemia 07/17/2023 07/17/2023 Hypertension 07/17/2023 07/17/2023 Type 2 diabetes mellitus wit h hyperglycemia, with long-term current use of insulin 07/17/2023 07/17/2023 Assessment & Plan (05/26/2025 4:41 PM EDT): Control continues to improve based his dexcom [...] this help. He will set up his Admit[employer] account information and omnipod account information before the training visit. Continue to work on eating healthy and trying to be active as possible. To call or message with any issues managing is glucose levels. Up to date with nieves, scheduled to see in June. Will do labs with new PCP Assessment & Plan (02/24/2025 9:57 PM EDT): [...] Will look into getting his records from [facility] from 2011 to see if it is [...] is glucose levels. Up to date with ophtho. He has been having an issue with a callous on the bottom of his left foot. Will send a referral for him to see podiatry to have this taken care of. Assessment & Plan (04/15/2024 12:47 AM EDT): Control continues to improve based upon reviewing the andrew data on the patient's phone. He does [...] is glucose levels. Up to date with ophtho. Will do lab with PCP at next [...] glucose levels. Up to date with opho. Had blood work done at [facility] will call to get results Assessment & [...] and being active. Up to date with [facility]. Labs ordered today. He was also seen by Dr Hooks to discuss the treatment plan intermediate frame tender current use of insulin 07/17/2023 Assessment & Plan (10/19/2024 11:04 AM EST): Will maintain current Humulin R U-500 dosing halfway current use of oral hypoglycemic drug 07/17/2023 [...] working with a [facility] in [place] to help with their long haul covid symptoms. Discussed has he taken a look at the clinic in [place]. He didn't realize there was a clinic there. I will send him the clinic information through the gateway and he will look into this Encounters Date Type Department Care Team Description 05/24/2025 8:20 AM EDT Office Visit [facility] [address] [place] [address] Zaira Davies PA-C Type 2 diabetes mellitus with hyperglycemia, with long-term current use of insulin (Primary Dx) from Last 3 Months Social History Tobacco [...] Pulse 98 05/24/2025 8:23 AM EDT Temperature 36.3 C (97.4 F) 07/12/2024 8:00 AM EDT Respiratory Rate - - Oxygen Saturation 97% 05/24/2025 8:23 AM EDT Inhaled Oxygen Concentration - - Weight 140.1 kg (308 lb 12.8 oz) 05/24/2025 8:23 AM EDT Height 175.3 cm (5' 9.02 ) 02/21/2025 8:08 AM ED T Body Mass Index 45.58 02/21/2025 8:08 AM EDT Plan of Treatment Upcoming Encounters Date Type Department Care Team (Late st Contact Info) Description 06/29/2025 12:30 PM EDT Office Visit [facility] [address] [place] [address] Zaira Davies PA-C [address] [place] [id number] 07/22/2025 8:00 AM EDT Office Visit [facility] [address] [place] [address] Zaira Davies PA-C [address] [place] [phone] 11/29/2025 8:20 AM EDT Office Visit [facility] [address] [place] [address] Lupe Hooks MD [address] [place] [phone] Health Maintenance Due Date Last Done Comments [...] of 2) 01/21/2020 DIABETIC EYE EXAM 07/17/2023 INFLUENZA VACCINE (#1) 2025 COVID-19 VACCINE ( season) 2025 POTASSIUM LEVEL 07/08/2025 07/08/2024, 12/21, 09/18/2023 CREATININE LEVEL 10/15/2025 10/15/2024, , 01/02/2024, Additional history exists BLOOD PRESSURE 11/21/2025 05/24/2025 SMOKING STATUS SCREENING (Once After 26 Yrs) [...] Comprehensive metabolic panel (10/15/2024 4:48 PM EST) [facility] Provider LAB BLOOD ORDERABLES Estefania l Result * Basic metabolic panel (07/08/2024 8:16 AM EDT) Saw Gonzales MD LAB BLOOD ORDERABLES Fin al Result from Last 3 Months or Most Recently Relevant to Health Maintenance Insurance [facility] [employer] [place] [id number] [facility]UNITY [facility] Care Teams Mold Tooler Relationship Specialty Start Date End Date Staci Garcia PA [address] [place] [address] [place] [address] PCP - General Physician Flight Manager 05/24/25 Additional Source Comments The information contained in this document represents components of the legal health record. It is not the complete legal health record.[facility]
[2025-05-28 09:22] LABS: Hematocrit 43.1 % (42.0-52.0); Hemoglobin 14.4 g/dl (14.0-18.0); Mean Corpuscular HGB Conc 33.4 g/dl (31.0-36.0); Mean Corpuscular Hemoglobin 29.3 pg (27.0-33.0); Mean Corpuscular Volume 87.8 fL (80.0-98.0); NRBC Abs Auto 0.000 X10*3/uL (0.0-0.012); NRBC Pct Auto 0.0 /100WBC (0.0-0.2); Platelet Count 265 X10*3/uL (160-400); Red Blood Count 4.91 X10*6/uL (4.60-5.80); White Blood Count 10.3 X10*3/uL (4.8-10.8)
[2025-05-28 09:33] LABS: Hemoglobin A1C 209.1750 umol/L; Total Hemoglobin (HGBA1C) 3722.6084 umol/L
[2025-05-28 10:50] LABS: Alanine Aminotransferase 48 U/L (0-40); Albumin Level 4.3 g/dL (3.5-5.0); Alkaline Phosphatase 63 U/L (39-117); Anion Gap 13 (12-20); Aspartate Amino Transferase 32 U/L (5-37); Blood Urea Nitrogen 18 mg/dL (9-16); Calcium 9.2 mg/dL (8.4-10.2); Carbon Dioxide 27 mmol/L (22-29); Chloride 106 mmol/L (96-108); Cholesterol 140 mg/dL (<200); Estimated Glomerular Filt Rate > 60; HDL Cholesterol 35 mg/dL (>40); Potassium 4.3 mmol/L (3.3-5.1); Sodium 142 mmol/L (135-145); Total Protein 6.7 g/dL (6.5-8.0); Triglycerides 133 mg/dL (<150)
[2025-05-28 11:04] LABS: Prostate Specific Antigen 0.45 ng/mL (<0.05-4.0)
== END 2025-05-28 07:56 | disposition home or self-care (01) ==
LOC: HO.LAB 07:55
PROVIDERS: PCP Physician Assistant Medical; Visit Provider Physician Assistant Medical
DX: Z12.5 Encounter for screening for malignant neoplasm of prostate (principal); E11.65 Type 2 diabetes mellitus with hyperglycemia; E78.5 Hyperlipidemia, unspecified; I10 Essential (primary) hypertension; M54.2 Cervicalgia; M25.511 Pain in right shoulder; M25.561 Pain in right knee; M79.672 Pain in left foot; Z79.4 Long term (current) use of insulin
CPT/HCPCS: 36415; 72050; 73030; 73562; 73610; 73630; 80053; 80061; 82570; 83036; 84153; 84443; 85027

== ENCOUNTER → 2025-05-28 08:26 | Outpatient (BNV) | payer OTHER, SELFPAY | PROVIDERS: PCP Physician Assistant Medical; Visit Provider Radiology Diagnostic Radiology | DX: M50.30 Other cervical disc degeneration, unspecified cervical region (principal); M25.511 Pain in right shoulder; M17.11 Unilateral primary osteoarthritis, right knee; M19.072 Primary osteoarthritis, left ankle and foot | CPT/HCPCS: 72050; 73030; 73562; 73610; 73630 ==

== ENCOUNTER 2025-07-28 08:49 | Outpatient (AMB) | payer OTHER, SELFPAY ==
--- NOTE | 2025-07-28 08:57 | MHC.PC.OV ---
Vital Signs 07/28/25 09:04 Height 5 ft 9 in Weight 309 lb 2 oz BMI 45.6 BP 118/70 Blood Pressure Location Lt brachial Position Sitting Respiration 16 Pulse 83 Pulse Source Pulse Oximeter Temp 97.1 F Temp Source Temporal Artery Scan Pulse Oximetry (%) 98 Oxygen Delivery Method Room Air Intake Visit Reasons: fu on test Intake Note: Timmy presents in the office today for a follow up to his echocardiogram. Allergies mushroom Allergy (Verified 07/28/25 09:00) Anaphylaxis Seasonal Allergies Allergy (Verified 07/28/25 09:00) Itchy Eyes Tobacco use date assessed: 07/28/25 Dental Screening Dental Screen Date: 07/28/25 Did you have a dental visit in the last 12 months?: Yes Did you have a dental problem in the last 6 months where you did not have access to dental care?: No Was dental information given to patient?: Patient has dentist HPI HPI Comments History of Present Illness Details This is a 55-year-old male with a past medical history of type 2 diabetes, osteoarthritis, hypertension, obesity, asthma, hepatic steatosis and migraines presenting for follow up. Type 2 diabetes-diagnosed in 2004. Started omnipod 5 insulin pump a month ago. Followed by [facility]. He was previously treated with metformin, glimepiride and Byetta. He developed pancreatitis, and Byetta was discontinued. He has a Dexcom G7 device. His GMI for the past 30 days is 7.1% and 7 day is 6.9%. He takes metformin extended release 1000 mg twice a day. He had LFT elevation, and ultrasound is scheduled 08/31/25 at [facility]. Denies abdominal pain, nausea or vomiting. Asthma is stable. He uses albuterol as needed and takes Singulair 10 mg daily. He had a colonoscopy in March 2025. He reports it was normal, and he was told to repeat it in 10 years. Hypertension is treated with losartan 100 mg daily, eplerenone 50 mg twice daily and amlodipine 2.5 mg daily. Patient reported having a normal echocardiogram at [facility] within the past year. Patient says his PCP did not EKG that showed a left bundle branch block which led to getting the echo. Denies chest pain or shortness of breath. He is on pravastatin 40 mg daily for hyperlipidemia. Coronary artery CT scan was ordered, and prior authorization needs to be processed. He is long COVID. He experiences chronic fatigue, brain fog, bilateral tinnitus since COVID-19 infection 4 years ago. His last PCP was in the process of referring him to a long COVID clinic. I referred him, but we had not received his medical records yet.. He has chronic left ankle and foot pain associated with a prior injury. Apparently he broke the left ankle and foot 4 times in the past playing rugby. He sees Dr. Santana. He received new orthotics 3 weeks ago, and this has really helped. He was referred to physiatry for chronic neck pain and to orthopedics for chronic bilateral knee pain. ROS: Constitutional: No unexplained weight loss, fever, chills or night sweats. Eyes: No vision changes, blurry vision, double vision, eye pain, eye redness, eye discharge. ENT: No hearing loss, sneezing, congestion, runny nose or sore throat. Respiratory: No shortness of breath, cough or sputum production. Cardiovascular: No chest pain, chest pressure or chest discomfort. No palpitations . +chronic bilateral lower extremity edema. Neurologic: No headache, dizziness, syncope Skin: No rash or open wounds Endocrine: No cold or heat intolerance. No polyuria or polydipsia. Physical exam: Constitutional: Alert, in no distress. Neck: Supple, Full range of motion. No lymphadenopathy. No palpable thyroid masses. Respiratory: Clear to auscultation. Cardiovascular: S1 S2 regular. No murmurs. No carotid bruits. Neurologic: No focal neurological deficits. Psychiatric: Normal mood and affect Extremities: Bilateral 1+ lower extremity edema [facility] Medical History (Updated 06/03/25 @ 16:41 by PIDEAD Blackburn) LFT elevation Mild intermittent asthma Genital herpes Class 3 obesity Pure hypercholesterolemia COVID-19 long hauler Abnormal EKG Left knee pain Left foot pain Right knee pain Right shoulder pain Cervicalgia Essential hypertension Type II diabetes with intermediate use of insulin Family History Brother Alcoholism Substance abuse Social History (Updated 07/28/25 @ 09:02 by Nan Jean CMA) Housing: Apartment Alcohol intake: current Patient Tobacco Use Status: Never used Tobacco e-Cigarette/Vaping Use: Never Used Second Hand Smoke Exposure: No service: No Current occupational status: employed 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 Current occupational exposures/hazards: No Cognitive needs: No Hearing needs: No Vision needs: No Questionnaire Thrive Questionnaire Date Thrive assessed: 05/12/25 I am a: Patient What is your living situation today?: I have a steady place to live Within the past 12 months, did the food you bought not last and you didn't have the money to get more?: Never true Within the past 12 months, did you worry whether your food would run out before you got money to buy more?: Never true Do you have trouble paying for medicines?: No Do you have trouble getting transportation to medical appointments?: No Do you have trouble paying your heating and electricity bill?: No Do you have trouble taking care of your child, family member or friend?: No Do you have trouble with day-to-day activities such as bathing, preparing meals, shopping, managing finances, etc.?: No Are you currently unemployed and looking for a job?: No Are you interested in more education?: No Please select the resources that you would like help with: None Currently or been in a relationship where the following occur: No concerns reported THRIVE Score: 0 CLIFF-7 AMB Questionnaire CLIFF-7 Date CLIFF - 7 assessed: 05/19/25 Source: Developed by Drs. Thanh Dewitt, Betina Munoz, Iker Hernandez and colleagues, with an educational patti from [employer] Physical exam (Primary Care) Vital Signs: Last Vital Signs Temp 97.1 F 07/28/25 09:04 Pulse 83 07/28/25 09:04 Resp 16 07/28/25 09:04 BP 118/70 07/28/25 09:04 Pulse Ox 98 07/28/25 09:04 Oxygen Delivery Method Room Air 07/28/25 09:04 BMI result Body Mass Index 45.6 Tobacco/Smoking Status: Tobacco use Status Tobacco use date assessed 07/28/25 07/28/25 09:06 Patient Tobacco Use Status Never used Tobacco 07/28/25 09:02 e-Cigarette/Vaping Use Never Used 07/28/25 09:02 Thrive Assessment: Date of Thrive Assessment Date Thrive assessed 05/12/25 07/28/25 08:57 Currently or been in a relationship where the following occur: No concerns reported Office Procedures Flu Questionnaire Does the patient have a severe egg allergy?: No Does the patient have severe life threatening allergies?: No Does the patient have a fever or illness today?: No Has the patient ever had Guillain-Windfall Syndrome?: No Has the patient ever had any past reaction to a flu shot?: No Immunizations Fluarix [id number] (PF) 45 mcg (15 mcg x 3)/0.5 mL IM syringe Performing Provider: PIEDAD Blackburn Performing Location: [facility] Family Medicine Administered by: Nan Jean CMA on 07/28/25 09:44 Dose Route Admin Location Dispensed Lot Number Expiration Date NDC Fountain Server 0.5 mL IM Left Deltoid 0.5 mL [id number] 03/21/27 [id number] [employer] VIS Given Date VIS Provided VIS Publication Date 07/28/25 Single Vaccine 24 Eligibility Eligibility Date Funding Source Not 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 (2) Essential hypertension: Code(s): I10 - Essential (primary) hypertension Category: Medical Plan: Controlled. Continue current regimen. Continue efforts at weight loss and low-sodium diet. (3) Abnormal EKG: Code(s): R94.31 - Abnormal electrocardiogram [ECG] [EKG] Category: Medical Plan: Patient reports having a normal echocardiogram at [facility] a month ago. I will review his transfer records. EKG at our office showed a left anterior fascicular block. Denies anginal symptoms. I would like him to proceed with the coronary calcium CT which needed a prior authorization. Our office will look into this. 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 Followed by endocrinology and has interval improvement in G CT since starting on the pump a month ago. (5) Left foot pain: Code(s): M79.672 - Pain in left foot Category: Medical Plan: Interval improvement with custom orthotics. Followed by Podiatry. (6) Pure hypercholesterolemia: Code(s): E78.00 - Pure hypercholesterolemia, unspecified Category: Medical Plan: Recommended Mediterranean diet. Continue pravastatin. Plan Follow up in 6 months. Orders: Orders Influenza [id number] Immunization Today Z23 - Encounter for immunization
[2025-07-28 09:04] VITALS: BP 118/70; PULSE 83; RESP 16; TEMP 36.2; O2SAT 98; BMI 45.6
--- OUTSIDE RECORDS SUMMARY | 2025-07-28 09:29 | XMS_ITS | Clinical Summary ---
Author Organization [facility] [address] [facility] Address [address] [place] [address] Phone Care Team Providers Care Tight Cooper Name Role Phone Saw [place] MD Primary Care Provider [phone] Allergies Active Allergy Reactions Criticality Noted Date [...] needle, diabetic (ULTRA-THIN II INS PEN NEEDLES [facility]) Active ibuprofen (ADVIL,MOTRIN) 400 mg tablet Take [...] (two) times a day. 12/31/19 25 Active Surgical History Surgery Date Site/Laterality Comments ROTATOR [...] Safety Answer Date Record ed Physical Abuse Unrecognized value 04/21/2025 Verbal Abuse Unrecognized value 04/21/2025 Sex and Gender Information Value Date [...] 01/21/1980 Diabetes: Annual Retina Eye Exam 01/21/1980 RSV Immunization Adult Patients (1 - Risk 50-74 years 1-dose series) 01/21/2020 Zoster Vaccines (1 of 2) 01/21/2020 Hepatitis [...] 02/25/2022, 08/07/2021, 04/19/2021 Influenza Vaccine (#1) 2025 4, 09/25/2023, 07/16/2022, Additional history exists DTaP,Tdap,and Td Vaccines (2 - Td or Tdap) 10/11/2031 10/11/2021 Colorectal Cancer Screening: Colonoscopy 04/21/2035 04/21/2025, 04/21/2025 Hepatitis B Vaccines Completed 07/03/2021, 01/30/2021, [...] Colon cancer screening from Last 3 Months or Most Recently Relevant to Health Maintenance Results * COLONOSCOPY Anesthesia - MAC; [facility] ENDOSCOPY (04/21/2025 9:12 AM EDT) Anatomical Region Laterality Modality Other 04/21/2025 8:47 AM EDT Impressions 04/21/2025 9:14 AM EDT - Internal hemorrhoids. - No specimens collected. Recommendation: - Repeat colonoscopy in 10 years for screening purposes. - Use fiber, for example Citrucel, Fibercon, Konsyl or Metamucil. Narrative 04/21/2025 9:[address] [facility] GI Patient Name: Timmy Stuart Procedure Date: [...] meeting criteria for high risk CPT copyright 1 [employer]. All rights reserved. The codes documented in this report are preliminary and upon spool maker review may be revised to meet current compliance requirements. Nitish Arias MD 04/21/2025 9:14:03 AM This report has been signed electronically.Nitish Arias MD Number of Addenda: 0 Note Initiated On: 04/21/2025 8:47 AM Scope In: Scope Out: Endoscopy Department at [facility] - [address] [place] [id number] Procedure Note Nitish Arias MD - 04/21/2025 [facility] Patient Name: Timmy Stuart Procedure Date: [...] criteria for high risk CPT copyright 2020 [employer]. All rights reserved. The codes documented in this report are preliminary and upon spool maker reviewmay be revised to meet current compliance requirements. Nitish Arias MD 04/21/2025 9:14:03 AM This report has been signed electronically.Nitish Arias MD Number of Addenda: 0 Note Initiated On: 04/21/2025 8:47 AM Scope In: Scope Out: Endoscopy Department at [facility] - [address] [place] [phone] IMPRESSION: - Internal hemorrhoids. - No specimens collected. Recommendation: - Repeat colonoscopy in 10 years for screening purposes. - Use fiber, for example Citrucel, Fibercon, Konsylor Metamucil. us Nitish Arias MD GI~PROCEDURE ORDERABLES Final Re sult from Last 3 Months or Most Recently Relevant to Health Maintenance [place] [phone] Care Teams Tight Cooper Relationship Specialty Start Date End Date Saw [place] MD [address] [place] [address] PCP - General Internal Medicine 01/06/25
--- OUTSIDE RECORDS SUMMARY | 2025-07-28 09:29 | XMS_ITS | Clinical Summary ---
Author Organization [facility] Address [address] [facility] [address] [place] [phone] Phone Care Team Providers Care Homeowner Association Manager Name Role Phone Staci Garcia Primary Care [...] (two) times a day. 05/19/20 25 Active OMNIPOD 5 G6-G7 PODS, GEN 5, CrtgIndications: Type 2 diabetes mellitus with hyperglycemia, with long-term current use of insulin Inject 1 each under the skin every third day. 30 each 3 06/29/20 Active Active Problems Problem Noted Date Diagnosed Date Insulin pump in place 06/29/2025 Assessment & Plan (07/22/2025 10:41 AM EDT): He is using the omnipod 5 insulin pump and dexcom G7 sensor. He is using his phone to control both devices Assessment & Plan (06/29/2025 2:38 PM EDT): He is using the omnipod 5 insulin pump and dexcom G7 sensor. He is using his phone to control both devices Hypercholesterolemia 07/17/2023 07/17/2023 Hypertension 07/17/2023 07/17/2023 Type 2 diabetes mellitus wit h hyperglycemia, with long-term current use of insulin 07/17/2023 07/17/2023 Assessment & Plan (07/22/2025 10:45 AM EDT): Control has improved based upon the patient's insulin pump and sensor download. No frequent or severe hypoglycemia. He has lessened his 4 am and 4:30 pm bolus dosing and this has helped prevent the lows. Will maintain his current pump settings as he is not facing as much glucose spike in the morning when waking. To call or message with any issues managing his glucose levels. Assessment & Plan (06/29/2025 2:43 PM EDT): Patient was given an omnipod 5 pump starter kit. He created his omnipod 5 pump user ID and password before today's visit. He also created his [employer] account as well. He was able to log into the track fitter and then set up his omnipod track fitter using the starting orders calculated by the omnipod starter pump setting form. We then shut down the track fitter. He then downloaded the omnipod 5 harper for his phone. He entered her basal rate of 0.5 units per hour. His target glucose is 110 and correct above is 110. His insulin to carb ratio is 1:18, his insulin sensitivity is 1:78. His active insulin time is 4 hours. Reverse correction is off. He was able to connect his dexcom G7 to the pump without issues. He was able to fill the pod with insulin without any issues and then place and start the pod. Reviewed site location and rotation for both the pods and sensors to effectively communicate together. Reviewed all menu options with him. Reviewed how to check the status of his pods. Reviewed how to bolus for his meals and corrections. He feels comfortable with everything. He will reach out with any questions or concerns. He is using U-500 insulin in the pods and all calculations are using the U-500 insulin dosing Assessment & Plan (05/26/2025 4:41 PM EDT): [...] this help. He will set up his [employer] account information and omnipod account information before [...] Will look into getting his records from [facility] from 2011 to see if it [...] is glucose levels. Up to date with ophonelo. He has been having an issue with [...] is glucose levels. Up to date with ophonelo. Had blood work done at [facility] will call to get results Assessment & [...] and being active. Up to date with [facility]. Labs ordered today. 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 Discussed has he taken a look at the clinic in [place]. He didn't realize there was a clinic there. I will send him the clinic information through the gateway and he will look into this Encounters Date Type Department Care Team Description 07/22/2025 8:00 AM EDT Office Visit [facility] [address] [place] [address] [place] [id number] Zaira Davies PA-C Type 2 diabetes mellitus with hyperglycemia, with long-term current use of insulin (Primary Dx); Insulin pump in place 06/29/2025 12:30 PM EDT Office Visit [facility] [address] [place] [address] [place] [phone] Zaira Davies PA-C Type 2 diabetes mellitus with hyperglycemia, with long-term current use of insulin (Primary Dx); Insulin pump in place 05/24/2025 8:20 AM EDT Office Visit [facility] [address] [place] [address] [place] [phone] Zaira Davies PA-C Type 2 diabetes mellitus [...] Sign Reading Time Taken Comments Blood Pressure 132/78 07/22/2025 8:05 AM EDT Pulse 79 07/22/2025 8:05 AM EDT Temperature 36.3 C (97.4 F) 07/12/2024 8:00 AM EDT Respiratory Rate - - Oxygen Saturation 96% 07/22/2025 8:05 AM EDT Inhaled Oxygen Concentration - - Weight 141 kg (310 lb 12.8 oz) 07/22/2025 8:05 A M EDT Height 175.3 cm (5' 9.02 ) 07/22/2025 8:05 AM ED T Body Mass Index 45.88 07/22/2025 8:05 AM EDT Plan of Treatment Upcoming Encounters Date Type Department Care Team (Late st Contact Info) Description 11/29/2025 8:20 AM EDT Office Visit [facility] [address] [place] [address] [place] [address] Lupe Hooks MD [address] [place] [phone] 03/01/2026 8:00 AM EDT Office Visit [facility] [address] [place] [address] [place] [address] Zaira Davies PA-C [address] [place] [phone] Health Maintenance Due Date Last Done Comments Adult Td,Tdap Booster 1970 HEMOGLOBIN A1C 1970 DEPRESSION SCREENING 1982 HEPATITIS C SCREENING 01/21/1988 HIV ONE-TIME SCREENING (18-65 YEARS) 01/21/1988 PNEUMOCOCCAL VACCINES (50+ years) (1 of 2 - PCV) 1989 COLOGUARD 2015 COLONOSCOPY 2015 COLORECTAL CANCER SCREENING 2015 FIT TEST 2015 FOBT 2015 SIGMOIDOSCOPY 2015 VIRTUAL COLONOSCOPY 2015 RSV VACCINE (1 - Risk 50-74 years 1-dose series) 01/21/2020 ZOSTER VACCINES (1 of 2) 01/21/2020 DIABETIC EYE EXAM 07/17/2023 INFLUENZA VACCINE (#1) 2025 COVID-19 VACCINE (1 - 2024- season) 2025 POTASSIUM LEVEL 07/08/2025 07/08/2024, 12/21, 09/18/2023 CREATININE LEVEL 10/15/2025 10/15/2024, , 01/02/2024, Additional history exists BLOOD PRESSURE 01/19/2026 07/22/2025 SMOKING STATUS SCREENING (Once After 26 Yrs) Completed 07/22/2025 HEPATITIS A VACCINES Aged Out No long [...] Date/Time Associated Diagnosis Comments COMPREHENSIVE METABOLIC PANEL (CMP) Routine 10/15/2024 4:48 PM EST BASIC METABOLIC PANEL (BMP) Routine 07/08/2024 8:16 AM EDT from Last 3 Months or Most Recently Relevant to Health Maintenance Results * Comprehensive metabolic panel (10/15/2024 4:48 PM EST) Historical Provider LAB BLOOD BKR ORDERABLES Final Result * Basic metabolic panel (07/08/2024 8:16 AM EDT) us Saw [place] MD LAB BLOOD BKR ORDERABLES Final Result from Last 3 Months or Most Recently Relevant to Health Maintenance Insurance CHOICE CHOICE [facility] [place] [address] [place] [address] [address] [place] [address] CHOICE Care Teams Homeowner Association Manager Relationship Specialty Start Date End Date Staci Garcia PA [address] [place] [address] [place] [address] PCP - General Physician Threshing Department Supervisor 05/24/25 Additional Source Comments The information contained in this document represents components of the legal health record. It is not the complete legal health record.[facility]
== END 2025-07-28 09:44 | disposition home or self-care (01) ==
LOC: HO.HMCFM 08:50
PROVIDERS: PCP Physician Assistant Medical; Visit Provider Physician Assistant Medical
DX: U09.9 Post COVID-19 condition, unspecified (principal); E11.9 Type 2 diabetes mellitus without complications; Z79.4 Long term (current) use of insulin; I10 Essential (primary) hypertension; R94.31 Abnormal electrocardiogram [ECG] [EKG]; M79.672 Pain in left foot; E78.00 Pure hypercholesterolemia, unspecified; Z23 Encounter for immunization

== ENCOUNTER → 2025-07-28 08:49 | Outpatient (BNVA) | payer OTHER, SELFPAY | PROVIDERS: PCP Physician Assistant Medical; Visit Provider Physician Assistant Medical | DX: U09.9 Post COVID-19 condition, unspecified (principal); Z23 Encounter for immunization; I10 Essential (primary) hypertension; R94.31 Abnormal electrocardiogram [ECG] [EKG]; E11.9 Type 2 diabetes mellitus without complications; M79.672 Pain in left foot; E78.00 Pure hypercholesterolemia, unspecified; J45.909 Unspecified asthma, uncomplicated; M25.572 Pain in left ankle and joints of left foot; M54.2 Cervicalgia; M25.561 Pain in right knee; M25.562 Pain in left knee; G89.29 Other chronic pain; Z79.4 Long term (current) use of insulin; Z79.899 Other long term (current) drug therapy; Z96.41 Presence of insulin pump (external) (internal) | CPT/HCPCS: 90471; 90656 ==

== ENCOUNTER 2025-08-24 07:48 | Outpatient (REF) | payer OTHER, SELFPAY ==
--- NOTE | ~2025-08-24 | US_ITS ---
EXAMINATION: US ABDOMEN LIMITED WITH LIVER ELASTOGRAPHY CLINICAL INFORMATION: Abnormal findings of blood chemistry COMPARISON: None available. TECHNIQUE: Real-time imaging of the abdominal viscera. Noninvasive ultrasound liver fibrosis assessment is performed using Stan ElastPQ point quantification shear wave elastography (pSWE) with a 5 MHz transducer. Multiple elastography samples are obtained. FINDINGS: PANCREAS: The visualized pancreatic head and body are normal in appearance. The remainder of the pancreas is obscured from visualization by the overlying bowel gas. LIVER: The liver demonstrates normal contour. Increased parenchymal echogenicity. No focal lesion or intrahepatic biliary duct dilatation. The right lobe measures 18.6 cm in length. The left lobe measures 14.5 cm in length. Shear wave elastography provides a median stiffness of 1.63 m/s (reference: normal median stiffness is 0.81 - 1.22 m/s). The IQR/median stiffness to assess sampling precision is 0.09 (reference: optimal IQR/median stiffness is under 0.3). GALLBLADDER: The gallbladder is physiologically distended without evidence of stones, sludge, polyps, wall thickening or pericholecystic fluid. COMMON BILE DUCT: Normal in caliber measuring 0.4 cm in diameter. RIGHT KIDNEY: No hydronephrosis. No renal calculi or focal parenchymal lesions. The kidney measures 12.5 cm in maximum dimension. FREE FLUID: None seen. US/US abdomen watts w elastography IMPRESSION: 1. Hepatomegaly. Diffuse increased parenchymal echogenicity more commonly seen with atelectatic steatosis. 2. Elastography: Median stiffness 1.63 m/s. *Liver Stiffness less than 1.7 m/s: In the absence of other known clinical signs, rules out compensated advanced chronic liver disease. REFERENCE: Society of Radiologists in Ultrasound Liver Stiffness Thresholds (2020): LIVER STIFFNESS THRESHOLDS: *Liver Stiffness equal or less than 1.3 m/s: High probability of being normal. *Liver Stiffness less than 1.7 m/s: In the absence of other known clinical signs, rules out compensated advanced chronic liver disease. *Liver Stiffness 1.7-2.1 m/s: Suggestive of compensated advanced chronic liver disease but need further test for confirmation. *Liver Stiffness over 2.1 m/s: Rules in compensated advanced chronic liver disease. *Liver Stiffness over 2.4 m/s: Suggestive of clinically significant portal hypertension. QUALITY OF DATA SET: *IQR/Median value equal or less than 0.15 implies a quality data set. *IQR/Median value over 0.15 implies a poor quality data set. SIGNIFICANT CHANGE FROM PRIOR EXAM: Significant change if liver stiffness measurement is 10% or greater from prior exam. OTHER CONSIDERATIONS: The stage of liver fibrosis may be overestimated in the setting of acute hepatitis, liver inflammation, elevated liver function tests, hepatic vascular congestion, obstructive cholestasis, non-fasting state, and infiltrative diseases such as amyloidosis and lymphoma. In some patients with NAFLD, the liver stiffness thresholds for compensated advanced chronic liver disease may be lower. In causes other than viral hepatitis and NAFLD, liver stiffness thresholds are not well established. Electronically signed by: Andrae Veronica MD 08/25/2025 08:28 AM [facility]
--- OUTSIDE RECORDS SUMMARY | 2025-08-24 07:50 | XMS_ITS | Clinical Summary ---
Author Organization [facility] Address [address] [employer] [facility] [address] [place] [address] Phone Care Team Providers Care Coding Spec Name Role Phone Staci Garcia Primary Care [...] before today's visit. He also created his [employer]ened[employer] account as well. He was able to log into the benefits manager and then set up his omnipod benefits manager using the starting orders calculated by the omnipod starter pump setting form. We then shut down the benefits manager. He then downloaded the omnipod 5 harper [...] this help. He will set up his [employer] account information and omnipod account information before [...] Will look into getting his records from [facility] from 2011 to see if it is [...] with ophonelo. Had blood work done at [facility] will call to get results Assessment [...] and being active. Up to date with [facility]. Labs ordered today. 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 Discussed has he taken a look at the clinic in [place]. He didn't realize there was a clinic there. I will send him the clinic information through the gateway and he will look into this Encounters Date Type Department Care Team Description 08/02/2025 Telephone [facility] [place] [address] [place] [address] [place] [address] Izabela Bruce [place], [place] Labs 07/22/2025 8:00 AM EDT Office Visit [facility] [place] [address] [place] [address] [place] [address] Zaira Davies PA-C Type 2 diabetes mellitus with hyperglycemia, with long-term current use of insulin (Primary Dx); Insulin pump in place 06/29/2025 12:30 PM EDT Office Visit [facility] [place] [address] [place] [address] [place] [address] Zaira Davies PA-C Type 2 diabetes mellitus with hyperglycemia, with long-term current use of insulin (Primary Dx); Insulin pump in place from Last 3 Months Social History Tobacco [...] 8:20 AM EDT Office Visit [facility] [address] [place] [address] [place] [address] Lupe Hooks MD [address] [place] [id number] 03/01/2026 8:00 AM EDT Office Visit [facility] [address] [place] [address] [place] [address] Zaira Davies PA-C [address] [place] [address] Health Maintenance Due Date Last Done Comments [...] INFLUENZA VACCINE (#1) 2025 COVID-19 VACCINE ( - season) 2025 POTASSIUM LEVEL 07/08/2025 07/08/2024, 12/21, [...] AM EDT) Saw Gonzales MD LAB BLOOD BKR ORDERABLES Final Result from Last 3 Months or Most Recently Relevant to Health Maintenance Insurance COMMUNITY CHOICE CHOICE CHOICE COMMUNITY CHOICE [facility] CHOICE CHOICE Care Teams Coding Spec Relationship Specialty Start Date End Date Staci Garcia PA [address] [place] [address] [place] [address] PCP - General Physician Movie Producer 05/24/25 Additional Source Comments The information contained in this document represents components of the legal health record. It is not the complete legal health record.[facility]
--- OUTSIDE RECORDS SUMMARY | 2025-08-24 07:50 | XMS_ITS | Clinical Summary ---
Author Organization [facility] [address] [facility] Address [address] [place] [address] Phone Care Team Providers Care Risk Compliance Analyst Name Role Phone Saw Gonzales MD Primary Care Provider [phone]- [phone] Allergies Active Allergy Reactions Criticality Noted Date [...] needle, diabetic (ULTRA-THIN II INS PEN NEEDLES [facility]) Active ibuprofen (ADVIL,MOTRIN) 400 mg tablet Take [...] Maintenance Results * COLONOSCOPY Anesthesia - MAC; [facility] ENDOSCOPY (04/21/2025 9:12 AM EDT) Anatomical Region Laterality Modality Other 04/21/2025 8:47 AM EDT Impressions 04/21/2025 9:14 AM EDT - Internal hemorrhoids. - No specimens collected. Recommendation: - Repeat colonoscopy in 10 years for screening purposes. - Use fiber, for example Citrucel, Fibercon, Konsyl or Metamucil. Narrative 04/21/2025 9:14 AM EDT [facility] GI Patient Name: Timmy Stuart Procedure Date: [...] criteria for high risk CPT copyright 1 [employer]. All rights reserved. The codes documented in this report are preliminary and upon padder review may be revised to meet current compliance requirements. Nitish Arias MD 04/21/2025 9:14:03 AM This report has been signed electronically.Nitish Arias MD Number of Addenda: 0 Note Initiated On: 04/21/2025 8:47 AM Scope In: Scope Out: Endoscopy Department at [facility] - [address] [place] [id number] Procedure Note Nitish Arias MD - 04/21/2025 [facility] GI Patient Name: Timmy Stuart Procedure Date: [...] criteria for high risk CPT copyright 2020 [employer]. All rights reserved. The codes documented in this report are preliminary and upon padder reviewmay be revised to meet current compliance requirements. Nitish Arias MD 04/21/2025 9:14:03 AM This report has been signed electronically.Nitish Arias MD Number of Addenda: 0 Note Initiated On: 04/21/2025 8:47 AM Scope In: Scope Out: Endoscopy Department at [facility] - [address] [place] [phone] IMPRESSION: - Internal hemorrhoids. - No specimens collected. Recommendation: - Repeat colonoscopy in 10 years for screening purposes. - Use fiber, for example Citrucel, Fibercon, Konsylor Metamucil. us Nitish Arias MD GI~PROCEDURE ORDERABLES Final Re sult from Last 3 Months or Most Recently Relevant [place] [phone] Care Teams Risk Compliance Analyst Relationship Specialty Start Date End Date Saw Gonzales MD [address] [place] [address] PCP - General Internal Medicine 01/06/25
== END 2025-08-24 07:49 | disposition home or self-care (01) ==
LOC: HO.US 07:48
PROVIDERS: PCP Physician Assistant Medical; Visit Provider Physician Assistant Medical
DX: R79.89 Other specified abnormal findings of blood chemistry (principal)
CPT/HCPCS: 76705; 76981

== ENCOUNTER → 2025-08-24 07:50 | Outpatient (BNV) | payer OTHER, SELFPAY | PROVIDERS: PCP Physician Assistant Medical; Visit Provider Radiology Diagnostic Ultrasound | DX: K74.60 Unspecified cirrhosis of liver (principal) | CPT/HCPCS: 76705 ==

== ENCOUNTER 2025-08-29 15:44 | Outpatient (AMB) | payer OTHER, SELFPAY ==
[2025-08-29 15:55] VITALS: BP 146/60; PULSE 75; TEMP 36.8; O2SAT 97; BMI 46.7
--- NOTE | 2025-08-29 15:55 | AM.OFFWIN_ITS ---
Intake Vital Signs 08/29/25 15:55 Height 5 ft 9 in Weight 316 lb BMI 46.7 BP 146/60 H Blood Pressure Location Rt brachial Position Sitting Pulse 75 Pulse Source Pulse Oximeter Temp 98.2 F Temp Source Oral Pulse Oximetry (%) 97 Oxygen Delivery Method Room Air Intake Visit Reasons: EP Right knee injury Intake Note: pt presents with RT knee pain, swelling with a slow healing wound after slipping on ice at [facility] while there for an appt 5 days Patient Tobacco Use Status: Never used Tobacco Allergies morphine Allergy (Mild, Verified 08/29/25 16:00) Itching mushroom Allergy (Verified 08/29/25 15:59) Anaphylaxis Seasonal Allergies Allergy (Verified 08/29/25 15:59) Itchy Eyes exenatide (From [place]) Adverse Reaction (Intermediate, Verified 08/29/25 16:00) pancreatitis Do you need a note to return to daycare/school/sports/work: Yes HPI HPI Comments History of Present Illness Details 55-year-old male presents to the walk-in clinic with complaint of worsening right knee pain following an injury last Friday. Patient reports he slipped on ice at [facility] during another appointment and twisted/fell onto the right knee. He was evaluated at [facility] at that time; knee X-ray images reportedly unremarkable. He was discharged with instructions to follow up with PCP. He states he contacted his PCP?s office today but was directed to the walk-in due to lack of same-day openings; he does have a scheduled PCP visit on . Patient reports increasing right knee pain with ambulation and with bending/flexion of knee since the injury. Denies numbness, tingling, locking, or giving-way. Reports mild swelling but no redness or warmth. He does have an upcoming orthopedic appointment next Friday for a separate/right-knee issue. [facility] Medical History (Updated 06/03/25 @ 16:41 by PIEDAD Blackburn) LFT elevation Mild intermittent asthma Genital herpes Class 3 obesity Pure hypercholesterolemia COVID-19 long hauler Abnormal EKG Left knee pain Left foot pain Right knee pain Right shoulder pain Cervicalgia Essential hypertension Type II diabetes with half-way use of insulin Family History Brother Alcoholism Substance abuse Social History (Updated 07/28/25 @ 09:02 by Nan Jean [facility]) Housing: Apartment Alcohol intake: current Patient Tobacco Use Status: Never used Tobacco e-Cigarette/Vaping Use: Never Used Second Hand Smoke Exposure: No service: No Current occupational status: employed 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 Current occupational exposures/hazards: No Cognitive needs: No Hearing needs: No Vision needs: No Review of Systems Const All systems reviewed & are unremarkable except as noted in HPI and below Physical Exam Vital Signs: Last Vital Signs Temp 98.2 F 08/29/25 15:55 Pulse 75 08/29/25 15:55 BP 146/60 H 08/29/25 15:55 Pulse Ox 97 08/29/25 15:55 Oxygen Delivery Method Room Air 08/29/25 15:55 BMI result Body Mass Index 46.7 Const General: no acute distress Nutritional Appearance: obese morbidly obese Orientation/consciousness: patient oriented x3 Skin General skin exam: ecchymosis (Right Knee Bruise) and erythema Neuro General: patient oriented x3 and moves all extremities Extrem Other: Right Knee Exam: Inspection: Moderate swelling; no Ecchymosis, no erythema, no deformity. Palpation: Tenderness along medial joint line; no notable warmth. ROM: Limited secondary to pain, especially with flexion. Stability: No laxity with Varus/valgus stress. Negative anterior/posterior drawer. Gait: Antalgic favoring right knee. Uses clutches. Psych Speech and movement: Normal speech and movement present Assessment & Plan Assessment & Plan (1) Right knee pain: Code(s): M25.561 - Pain in right knee Plan: Right knee sprain/injury ? acute, worsening pain after slip on ice; reassuring exam without instability. Right knee pain ? likely soft-tissue injury; imaging previously unremarkable. Swelling of right knee ? moderate, likely inflammatory response post-injury. Recommend Rest, Ice, Compression, elevation (RICE). Continue OTC NSAIDs or acetaminophen PRN for pain. Provided knee González wrap for comfort/stability. Encouraged limited weight-bearing as tolerated; avoid bending, squatting, twisting. No new imaging needed today given stable exam and recent normal X-ray, unless symptoms worsen. Keep scheduled appointments: PCP follow-up and Orthopedics Friday for further evaluation. Coding Level of Care Code Est Pt Level 4 (13099) Diagnoses Right knee pain M25.561 Time Spent (min) 20
--- OUTSIDE RECORDS SUMMARY | 2025-08-30 01:19 | XMS_ITS | Clinical Summary ---
Author Organization [facility] [address] [facility] Address [address] [place] [address] Phone Care Team Providers Care Respooler Name Role Phone Saw Gonzales MD Primary Care Provider [phone]- [phone] Allergies Active Allergy Reactions Criticality Noted Date [...] needle, diabetic (ULTRA-THIN II INS PEN NEEDLES [facility] Active ibuprofen (ADVIL,MOTRIN) 400 mg tablet Take [...] Results * COLONOSCOPY Anesthesia - MAC; [facility] ENDOSCOPY (04/21/2025 9:12 AM EDT) Anatomical Region Laterality Modality Other 04/21/2025 8:47 AM EDT Impressions 04/21/2025 9:14 AM EDT - Internal hemorrhoids. - No specimens collected. Recommendation: - Repeat colonoscopy in 10 years for screening purposes. - Use fiber, for example Citrucel, Fibercon, Konsyl or Metamucil. Narrative 04/21/2025 9:14 AM EDT [facility] GI Patient Name: Timmy Stuart Procedure Date: 04/21/2025 8:47 AM Date of : 1970 Age: 55 Gender: Male Note Status: Finalized Attending MD: Nitish Arias MD, Procedure Date No Time: 04/21/2025 Procedure: Colonoscopy Indications: Screening for colorectal malignant neoplasm Providers: Nitish Arias MD Referring MD: Nitsih Arias MD Medicines: Propofol per Anesthesia Complications: [...] criteria for high risk CPT copyright 2020 [employer]. All rights reserved. The codes documented in this report are preliminary and upon tin assorter review may be revised to meet current compliance requirements. Nitish Arias MD 04/21/2025 9:14:03 AM This report has been signed electronically.Nitish Arias MD Number of Addenda: 0 Note Initiated On: 04/21/2025 8:47 AM Scope In: Scope Out: Endoscopy Department at [facility] - [address] [place] [phone] Procedure Note Nitish Arias MD - 04/21/2025 [facility] GI Patient Name: Timmy Stuart Procedure [...] criteria for high risk CPT copyright 2020 [employer]. All rights reserved. The codes documented in this report are preliminary and upon tin assorter reviewmay be revised to meet current compliance requirements. Nitish Arias MD 04/21/2025 9:14:03 AM This report has been signed electronically.Nitish Arias MD Number of Addenda: 0 Note Initiated On: 04/21/2025 8:47 AM Scope In: Scope Out: Endoscopy Department at [address] [phone] IMPRESSION: - Internal hemorrhoids. - No specimens collected. Recommendation: - Repeat colonoscopy in 10 years for screening purposes. - Use fiber, for example Citrucel, Fibercon, Konsylor Metamucil. us Nitish Arias MD GI~PROCEDURE ORDERABLES Final Re sult from Last 3 Months or Most Recently Relevant to Health Maintenance Insurance [employer] [address] [place], [place] [address] [id number] Care Teams Respooler Relationship Specialty Start Date End Date Saw Gonzales MD [address] [place] [address] PCP - General Internal Medicine 01/06/25
--- OUTSIDE RECORDS SUMMARY | 2025-08-30 01:19 | XMS_ITS | Clinical Summary ---
Author Organization [facility] Address [address] [place] [employer] [facility] [address] [place] [address] Phone Care Team Providers Care Setter Induction Heating Equipment Name Role Phone Staci Garcia Primary Care [...] tablet Take 1 tablet by mouth daily. 022 Active amLODIPine (NORVASC) 2.5 MG tablet Take [...] every 6 (six) hours as needed. Active metFORMIN (GLUCOPHAGE-XR) 500 MG 24 hr tabletIndicatio ns:Type 2 diabetes mellitus with hyperglycemia, with long-term current use of insulin Take 2 tablets (1,000 mg total) by mouth 2 (two) times a day before meals. 360 tablet 3 025 Active insulin regular U-500 CONC (HUMULIN R, KWIKPEN) 500 unit/mL (3 mL) subcutaneous injection penIndications: Type 2 diabetes mellitus with hyperglycemia, with long-term current use of insulin INJECT SUBCUTANEOUSLY 95 TO 115 UNITS DAILY BEFORE BREAKFAST AND 65 TO 85 UNITS DAILY BEFORE DINNER, PLUS FIVE UNITS TO PRIME PEN WITH EACH DOSE 36 mL 3 025 Active acyclovir (ZOVIRAX) 400 MG tablet Take 400 mg by mouth 2 (two) times a day. 025 Active OMNIPOD 5 G6-G7 PODS, GEN 5, CrtgIndications :Type 2 diabetes mellitus with hyperglycemia, with long-term current use of insulin Inject 1 each under the skin every third day. 30 each 3 025 Active DEXCOM G7 SENSOR DeviIndications :Type 2 diabetes mellitus with hyperglycemia, with long-term current use of insulin CHANGE SENSOR EVERY 10 DAYS. 9 each 3 025 Active DEXCOM G7 SENSOR DeviIndications :Type 2 diabetes mellitus with hyperglycemia, with long-term current use of insulin 1 each by Miscellaneous route Every 10 Days. 9 each 3 024 2024 Discontinued Active Problems Problem Noted Date Diagnosed Date [...] before today's visit. He also created his [employer] account as well. He was able to log into the rivet hammer machine operator and then set up his omnipod rivet hammer machine operator using the starting orders calculated by the omnipod starter pump setting form. We then shut down the rivet hammer machine operator. He then downloaded the omnipod 5 harper [...] this help. He will set up his [employer] account information and omnipod account information before [...] Will look into getting his records from [facility] from 2011 to see if it is [...] is glucose levels. [facility] has been having an issue with [...] is glucose levels. [facility] Will do lab with PCP at next [...] glucose levels. Up to date with [facility]. Had blood work done at [facility] [...] and being active. Up to date with [facility]. Labs ordered today. He was also seen by Dr Hooks to discuss the treatment plan oil heaterman current use of insulin 07/17/2023 Assessment & Plan (10/19/2024 11:04 AM EST): Will maintain current Humulin R U-500 dosing oil heaterman current use of oral hypoglycemic drug 07/17/2023 [...] a friend who is working with a [employer] medical group in [place] to help with their long haul covid symptoms. Discussed has he taken a look at the clinic in [place]. He didn't realize there was a clinic there. I will send him the clinic information through the gateway and he will look into this Encounters Date Type Department Care Team Description 08/26/2025 Refill [facility] [address] [place] [address] Zaira Davies PA-C Medication Refill 08/02/2025 Telephone [facility] End[facility] [address] [place] [address] Izabela Bruce[place], [place] Labs 07/22/2025 8:00 AM EDT Office Visit [facility]ocrin[facility] [address] [place] [address] Zaira Davies PA-C Type 2 diabetes mellitus with hyperglycemia, with long-term current use of insulin (Primary Dx); Insulin pump in place 06/29/2025 12:30 PM EDT Office Visit [facility] Endocrinology [address] [place] [address] Zaira Davies PA-C Type 2 diabetes mellitus [...] AM EDT Office Visit [facility] [address] [place] [address] Lupe Hooks MD [address] [place] [phone] 03/01/2026 8:00 AM EDT Office Visit [facility] [address] [place] [address] Zaira Davies PA-C [address] [place] [address] Health Maintenance Due Date Last Done Comments [...] PM EST) us Historical Provider LAB BLOOD BKR ORDERABLES Final Result * Basic metabolic panel (07/08/2024 8:16 AM EDT) us Saw Gonzales MD LAB BLOOD BKR ORDERABLES Final Result from Last 3 Months or Most Recently Relevant to Health Maintenance Insurance [place] [address] [place] [address] CHOICE [facility] [place] [address] [place] [address] CHOICE [facility] CHOICE Care Teams Setter Induction Heating Equipment Relationship Specialty Start Date End Date Staci Garcia PA [address] [place] [address] [place] [address] PCP - General Physician Pump Operator 05/24/25 Additional Source Comments The information contained in this document represents components of the legal health record. It is not the complete legal health record.[facility]
--- OUTSIDE RECORDS SUMMARY | 2025-08-30 01:19 | XMS_ITS | Encounter Summary ---
Author Organization [facility] Address [address] [place] [address] Phone Care Team Providers Care Director Of Music Therapy Name Role Phone Staci Garcia Primary Care Provide r Reason for Visit * Reason Comments Medication Refill Encounter Details Date Type Department Care Team (Late st Contact Info) Description 08/26/2025 Refill [facility] [address] [place] [address] Zaira Davies PA-C [address] [place] [address] [email or web address] Medication Refill Social History Tobacco Use Types Packs/Day Years [...] on file documented as of this encounter Progress Notes * Angi Eastman MA - 08/26/2025 8:10 AM EST Rx Care Gap Status - Instructions for Clinical Staff (prescriber discretion applies): > Mismatch review guide > At least one request does not meet full criteria. Specifics below. > Labs due: Please remind patient. > Orders needed: Click OPA and Accept to open SmartSet. A1c - Needs order * BMP - Needs order * Lipid panel - Needs order * Visit Info Last visit: 07/22/2025 Zaira Davies PA-C - Endocrinology [facility] > Requested f/u: Return in about 7 months (around 03/01/2026). Upcoming visit: 11/29/2025 Lupe Hooks MD - Endocrinology [facility] ACTIONS TAKEN BY Angi Eastman MA - Labs needed - Teed up orders and/or reminded pt. Diabetes Rx Protocol (on Diabetes Registry) - blood-glucose sensor Criteria not met; renew for up to 3 months. Visit in the past 14 months: Yes Clinical criteria: - BMP within past year: No - A1c within past 6 months: No - Lipid panel within past year: No (No prior value) - Urine microalbumin within past year or on KARTHIK/ARB: Yes Health Maintenance Labs Due / Due Soon Topic Date Due HEMOGLOBIN A1C Never done POTASSIUM LEVEL 07/08/2025 documented in this encounter Plan of Treatment Upcoming Encounters Date Type Department Care Team (Late st Contact Info) Description 11/29/2025 8:20 AM EDT Office Visit [facility] [address] [place] [address] [place] [address] Lupe Hooks MD [address] [place] [phone] 03/01/2026 8:00 AM EDT Office Visit [facility] [address] [place] [address] Zaira Davies PA-C [address] [place] [phone] [email or web address] documented as of this encounter Visit Diagnoses Diagnosis Type 2 diabetes mellitus with hyperglycemia, with long-term current use of insulin documented in this encounter Care Teams Director Of Music Therapy Relationship Specialty Start Date End Date Staci Garcia PA [address] [place] [address] [place] [address] PCP - General Physician String Winding Machine Operator 05/24/25 documented as of this encounter Additional Source Comments The information contained in this document represents components of the legal health record. It is not the complete legal health record.[facility]
== END 2025-08-29 16:34 | disposition home or self-care (01) ==
PROVIDERS: PCP Physician Assistant Medical; Visit Provider Nurse Practitioner Family
DX: M25.561 Pain in right knee (principal)

== ENCOUNTER 2025-09-01 16:07 | Outpatient (AMB) | payer OTHER, SELFPAY ==
--- NOTE | 2025-09-01 16:10 | A.OFFPC_ITS ---
Vital Signs 09/01/25 16:16 Height 5 ft 9 in Weight 318 lb 2 oz BMI 47.0 BP 128/68 Blood Pressure Location Lt brachial Position Sitting Respiration 16 Pulse 88 Pulse Source Pulse Oximeter Temp 97.0 F Temp Source Temporal Artery Scan Pulse Oximetry (%) 97 Oxygen Delivery Method Room Air Intake Visit Reasons: E/R fell on the ice and injured right knee Intake Note: Timmy presents in the office today for an ER follow up for his knee. Wind Turbine Mechanical Engineer Required: No Allergies morphine Allergy (Mild, Verified 09/01/25 16:13) Itching mushroom Allergy (Verified 09/01/25 16:13) Anaphylaxis Seasonal Allergies Allergy (Verified 09/01/25 16:13) Itchy Eyes exenatide (From Byetta) Adverse Reaction (Intermediate, Verified 09/01/25 16:13) pancreatitis Tobacco use date assessed: 09/01/25 Dental Screening Dental Screen Date: 09/01/25 Did you have a dental visit in the last 12 months?: Yes Did you have a dental problem in the last 6 months where you did not have access to dental care?: No Was dental information given to patient?: Patient has dentist HPI HPI Comments History of Present Illness Details Patient presents for acute right knee pain after fall on ice 08/24/25. Seen at ER. Xray negative for fracture. Abrasion on rigth knee, knee swelling, persistnet knee pain and difficulty bending the knee and walking. He is using crutches and partially weight bearing. Right knee twisted back during fall. Pain is no better. It is moderate at rest, severe with activity. No numbness, tingling, calf pain. Alternating Tylenol and Ibuprofen significant reduces pain temporarily. Tdap 2021. Patient has ortho consult on Friday. He was referred previously for right knee pain/arthritis. ROS: Constitutional: No fevers or chills Musculoskeletal: see HPI Skin: abrasion to right knee Physical exam: Respiratory: Clear to auscultation. Cardiovascular: S1 S2 regular. No murmurs. Right lower extremity: Large scab on right anterior knee. Right knee moderately swollen. Limited ROM of the knee. Medial knee pain with application of valgus pressure and palpation. Ambulates with limp to table. [facility] Medical History (Updated 09/02/25 @ 16:42 by PIEDAD Blackburn) Right knee injury Abnormal liver ultrasound LFT elevation Mild intermittent asthma Genital herpes Class 3 obesity Pure hypercholesterolemia COVID-19 long hauler Abnormal EKG Left knee pain Left foot pain Right knee pain Right shoulder pain Cervicalgia Essential hypertension Type II diabetes with [facility] use of insulin Family History Brother Alcoholism Substance abuse Social History (Updated 09/01/25 @ 16:15 by Nan Jean CMA) Housing: Apartment Alcohol intake: current Patient Tobacco Use Status: Never used Tobacco e-Cigarette/Vaping Use: Never Used Second Hand Smoke Exposure: No Use of substances other than those prescribed or required for medical reasons: No service: No Current occupational status: employed 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 Current occupational exposures/hazards: No Cognitive needs: No Hearing needs: No Vision needs: No Questionnaire Thrive Questionnaire Date Thrive assessed: 05/12/25 I am a: Patient What is your living situation today?: I have a steady place to live Within the past 12 months, did the food you bought not last and you didn't have the money to get more?: Never true Within the past 12 months, did you worry whether your food would run out before you got money to buy more?: Never true Do you have trouble paying for medicines?: No Do you have trouble getting transportation to medical appointments?: No Do you have trouble paying your heating and electricity bill?: No Do you have trouble taking care of your child, family member or friend?: No Do you have trouble with day-to-day activities such as bathing, preparing meals, shopping, managing finances, etc.?: No Are you currently unemployed and looking for a job?: No Are you interested in more education?: No Please select the resources that you would like help with: None Currently or been in a relationship where the following occur: No concerns reported THRIVE Score: 0 CLIFF-7 AMB Questionnaire CLIFF-7 Date CLIFF - 7 assessed: 05/19/25 Source: Developed by Drs. Thanh Dewitt, Betina Munoz, Iker Hernandez and colleagues, with an educational patti from [employer]. Physical exam (Primary Care) Vital Signs: Last Vital Signs Temp 97.0 F 09/01/25 16:16 Pulse 88 09/01/25 16:16 Resp 16 09/01/25 16:16 BP 128/68 09/01/25 16:16 Pulse Ox 97 09/01/25 16:16 Oxygen Delivery Method Room Air 09/01/25 16:16 BMI result Body Mass Index 47.0 Tobacco/Smoking Status: Tobacco use Status Tobacco use date assessed 09/01/25 09/01/25 16:18 Patient Tobacco Use Status Never used Tobacco 09/01/25 16:15 e-Cigarette/Vaping Use Never Used 09/01/25 16:15 Thrive Assessment: Date of Thrive Assessment Date Thrive assessed 05/12/25 09/01/25 16:11 Currently or been in a relationship where the following occur: No concerns reported Coding Level of Care Code Est Pt Level 3 (45211) Add On Problem Visit Only Diagnoses Right knee injury S89.91XA Assessment & Plan Assessment & Plan (1) Right knee injury: Code(s): S89.91XA - Unspecified injury of right lower leg, initial encounter Category: Medical Plan Limited exam today due to pain and swelling. Continue alternating with Tylenol and Ibuprofen as needed for pain short term. Dosing reviewed. Conitnue to use crutches. Xray negative. May need MRI to rule out internal derangement. Patient will see ortho on Friday. Also reviewed signs and symptoms of DVT given lower extremity injury and relative immobilization. Patient will monitor and call with any concerning symptoms.
[2025-09-01 16:16] VITALS: BP 128/68; PULSE 88; RESP 16; TEMP 36.1; O2SAT 97; BMI 47.0
--- OUTSIDE RECORDS SUMMARY | 2025-09-01 23:16 | XMS_ITS | Clinical Summary ---
Author Organization [facility] Address [address] [facility] [address] [place] [id number] Phone Care Team Providers Care Lotus Notes Developer Name Role Phone Staci Garcia Primary Care [...] before today's visit. He also created his [employer] account as well. 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 We then shut down the combat engineer. He then downloaded the omnipod 5 harper [...] this help. He will set up his [employer] account information and omnipod account information before [...] Will look into getting his records from [facility] from 2011 to see if it [...] is glucose levels. Up to date with [facility]. He has been having an issue with [...] is glucose levels. Up to date with [facility]. Will do lab with PCP at next [...] with ophtho. Had blood work done at [facility] will call to get results Assessment [...] and being active. Up to date with [facility]. Labs ordered today. 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 Discussed has he taken a look at the clinic in [place]. He didn't realize there was a clinic there. I will send him the clinic information through the gateway and he will look into this Encounters Date Type Department Care Team Description 08/26/2025 Refill [facility] [address] [place] [address] Zaira Davies PA-C Medication Refill 08/02/2025 Telephone [facility] [address] [place] [address] [place] Labs 07/22/2025 8:00 AM EDT Office Visit [facility] Endocrinology [address] [place] [address] Zaira Davies PA-C Type 2 diabetes mellitus with hyperglycemia, with long-term current use of insulin (Primary Dx); Insulin pump in place 06/29/2025 12:30 PM EDT Office Visit [facility] Endocrinology [address] [place] [address] Zaira Davies PA-C Type 2 diabetes mellitus [...] AM EDT Office Visit [facility] [address] [place] [address] Lupe Hooks MD [address] [place] [phone] 03/01/2026 8:00 AM EDT Office Visit [facility] [address] [place] [address] Zaira Davies PA-C [address] [place] [address] Health Maintenance Due Date Last Done Comments [...] Relevant to Health Maintenance Insurance [place] [address] [place] [address] CHOICE [facility] [address] [place] [address] CHOICE [facility] CHOICE Care Teams Lotus Notes Developer Relationship Specialty Start Date End Date Staci Garcia PA [address] [place] [address] [place] [address] PCP - General Physician Drug Safety Scientist 05/24/25 Additional Source Comments The information contained in this document represents components of the legal health record. It is not the complete legal health record.[facility]
--- OUTSIDE RECORDS SUMMARY | 2025-09-01 23:16 | XMS_ITS | Clinical Summary ---
Author Organization [facility] [address] [facility] Address [address] [place] [address] Phone Care Team Providers Care Television Maintenance Man Name Role Phone Saw Gonzales MD Primary Care Provider [phone] Allergies Active Allergy Reactions Criticality Noted Date [...] needle, diabetic (ULTRA-THIN II INS PEN NEEDLES [facility]) Active ibuprofen (ADVIL,MOTRIN) 400 mg tablet Take [...] Maintenance Results * COLONOSCOPY Anesthesia - MAC; [facility] ENDOSCOPY (04/21/2025 9:12 AM [...] criteria for high risk CPT copyright 2020 [employer]. All rights reserved. The codes documented in this report are preliminary and upon infectious disease technician review may be revised to meet current compliance requirements. Nitish Arias MD 04/21/2025 9:14:03 AM This report has been signed electronically.Nitish Arias MD Number of Addenda: 0 Note Initiated On: 04/21/2025 8:47 AM Scope In: Scope Out: Endoscopy Department at [facility] - [address] [place] [id number] Procedure Note Nitish Arias MD - 04/21/2025 [facility] GI Patient Name: Timmy Stuart Procedure Date: 04/21/2025 8:47 AM Date of : 1970 Age: 55 Gender: Male Note Status: Finalized Attending MD: Nitish Arias MD, Procedure Date No Time: 04/21/2025 Procedure: Colonoscopy Indications: Screening for colorectal malignant neoplasm Providers: Nitish Arisa MD Referring MD: Nitish Arias MD Medicines: [...] criteria for high risk CPT copyright 2020 [employer]. All rights reserved. The codes documented in this report are preliminary and upon infectious disease technician reviewmay be revised to meet current compliance requirements. Nitish Arias MD 04/21/2025 9:14:03 AM This report has been signed electronically.Nitish Arias MD Number of Addenda: 0 Note Initiated On: 04/21/2025 8:47 AM Scope In: Scope Out: Endoscopy Department at [address] [id number] IMPRESSION: - Internal hemorrhoids. - No specimens collected. Recommendation: - Repeat colonoscopy in 10 years for screening purposes. - Use fiber, for example Citrucel, Fibercon, Konsylor Metamucil. us Nitish Arias MD GI~PROCEDURE ORDERABLES Final Re sult from Last 3 Months or Most Recently Relevant to Health Maintenance Insurance [employer] [place], [place] [address] [id number] Care Teams Television Maintenance Man Relationship Specialty Start Date End Date Saw Gonzales MD [address] [place] [address] PCP - General Internal Medicine 01/06/25
== END 2025-09-01 16:49 | disposition home or self-care (01) ==
LOC: HO.HMCFM 16:08
PROVIDERS: PCP Physician Assistant Medical; Visit Provider Physician Assistant Medical
DX: S89.91XA Unspecified injury of right lower leg, initial encounter (principal)

== ENCOUNTER 2025-09-05 08:20 | Outpatient (AMB) | payer OTHER, SELFPAY ==
--- NOTE | 2025-09-05 08:28 | MHC.OFFVIS ---
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 Patient previously referred by PCP office for chronic right knee pain and stiffness. He was recently seen at [facility] on 08/24/25, reporting a slip and fall while at an appointment at [facility]. He was initially seen at [facility] where x-rays were obtained. Today patient reports after his fall his knee pain had increased. His pain is located at the medial aspect of knee. Complaints of swelling. States that he fell with his leg twisted under him. Tylenol and ibuprofen provides relief. He discontinued oxycodone as this did not help. Allergies morphine Allergy (Mild, Verified 09/01/25 16:13) Itching mushroom Allergy (Verified 09/01/25 16:13) Anaphylaxis Seasonal Allergies Allergy (Verified 09/01/25 16:13) Itchy Eyes exenatide (From Byetta) Adverse Reaction (Intermediate, Verified 09/01/25 16:13) pancreatitis Medication List - Last Reconciled 09/05/25 by Harriett Bolivar PA-C acyclovir 400 mg PO BID albuterol sulfate 90 mcg/actuation (Ventolin HFA) 2 puffs inhalation Q6H PRN amlodipine 2.5 mg PO DAILY bilheqd-rgwxtespvjpoi-flggsfjc 250-250-65 mg (Excedrin Migraine) 1 tab PO Q4-6H PRN coenzyme Q10 50 mg PO DAILY cyclobenzaprine 5 mg PO TID PRN eplerenone 50 mg PO BID ibuprofen 200 mg PO Q6H PRN insulin regular hum U-500 conc (Humulin R U-500 (Concentrated) Insulin) subcutaneously 2 times a day; per sliding scale losartan 100 mg PO DAILY magnesium 200 mg PO DAILY metformin ER (Glucophage XR) 1,000 mg PO BID montelukast 10 mg PO DAILY multivitamin (Daily Multi-Vitamin tablet) 1 tab PO DAILY pravastatin 40 mg PO DAILY Saccharomyces boulardii (Daily Probiotic (S. boulardii)) 250 mg PO BID HPI Comments Details: History of Present Illness The patient is a 55 year old male presenting with right knee pain. He has a five-year history of chronic, low-level right knee pain that would come and go, exacerbated by activities such as climbing stairs. He also reports stiffness in the knee after prolonged sitting. On August 24, the patient experienced an acute injury when he fell on ice, causing hyperflexion of his right knee as he landed on his buttocks. He was initially able to bear weight but by the end of the day could barely move the knee and has been out of work since the incident. The pain is now very severe with any twisting motion and localized to the medial aspect of the knee. Past medical history is significant for diabetes mellitus, which is well-controlled with an insulin pump and sensor. He also has a history of chronic fatigue since a COVID infection four years ago, which limits his ability to exercise. The patient has a history of multiple injuries from playing rugby, football, and powerlifting. He denies any prior physical therapy or injections for his knee before this recent injury. 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 - Exercise: The patient has been unable to exercise regularly for four years due to chronic fatigue following a COVID infection. - Physical activity: He is able to do mountain biking. - Past activities: He has a history of playing rugby, football, and powerlifting. [facility] Medical History (Updated 09/05/25 @ 09:49 by Harriett Bolivar PA-C) Right knee injury Abnormal liver ultrasound LFT elevation Mild intermittent asthma Genital herpes Class 3 obesity Pure hypercholesterolemia COVID-19 long hauler Abnormal EKG Left knee pain Left foot pain Right knee pain Right shoulder pain Cervicalgia Essential hypertension Type II diabetes with intermodal customer service use of insulin Family History Brother Alcoholism Substance abuse Social History (Updated 09/01/25 @ 16:15 by Nan Jean CMA) Housing: Apartment Alcohol intake: current Patient Tobacco Use Status: Never used Tobacco e-Cigarette/Vaping Use: Never Used Second Hand Smoke Exposure: No service: No Current occupational status: employed 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 - Pain is worse with stairs and twisting motions. - Reports stiffness after prolonged sitting. - Denies a sensation of the knee locking up. - Constitutional: Reports chronic fatigue since having COVID 4 years ago, with energy levels dropping significantly by early afternoon. Physical Exam Exam Exam: Physical Exam - Right Knee: Healing abrasion on the anterior aspect. - Swelling consistent with bursitis noted, without evidence of joint effusion. - Limited active extension. - Tenderness to palpation over the medial joint line - Grinding noted with an active range of motion, attributed to patellofemoral articulation. - Provocative testing with compression and rotation elicited pain. Vital Signs: BMI result Body Mass Index 47.0 Office Procedures AMB Joint Injection/Aspiration Joint Injection/Aspiration Primary Site: Right Knee Prep: site was prepped using aseptic technique, ethochloride spray was applied and injection warnings given Injected: 40 mg of, Decadron, with 3 mL of, 1% plain Lidocaine, 0.25% Bupivacaine and in the joint Approach Used: anterolateral Procedure: The patient tolerated the procedure well and there was some relief with the local anesthesia Coding 48351 - Glenohumeral/Tronchanteric Bursa/Intraarticular Procedure code (CPT) selection complete Results Reviewed Results Reviewed: Xrays were obtained in the office today and personally reviewed by me of the right knee show severe patellar malalignment with OA Assessment & Plan Assessment & Plan (1) Osteoarthritis of right knee: Code(s): M17.11 - Unilateral primary osteoarthritis, right knee Category: Medical Qualifiers: Osteoarthritis type: primary Qualified Code(s): M17.11 - Unilateral primary osteoarthritis, right knee Plan: Plan 1. Right Knee Pain, Osteoarthritis X-rays demonstrate severe patellofemoral arthritis and trvs-pn-zzfghxhu tibiofemoral arthritis. The patient's acute symptoms following a hyperflexion injury, including sharp medial pain with twisting, are suspicious for a meniscal tear. Given the significant underlying arthritis, a conservative approach is warranted initially, as surgery for a meniscal tear could exacerbate his arthritis symptoms. Plan is to proceed with a cortisone injection today to reduce inflammation and pain. An order will be placed for physical therapy. The patient is advised to continue with anti-inflammatory medications as needed and to modify activities. He should follow up by phone in approximately four weeks. If symptoms do not improve or worsen, an MRI would be considered to further evaluate the meniscus for possible surgical intervention. (2) Diabetes mellitus: Code(s): E11.9 - Type 2 diabetes mellitus without complications Category: Medical Plan: 2. Diabetes Mellitus The patient has well-controlled diabetes managed with an insulin pump and continuous glucose monitor. He was advised that the cortisone injection can cause a temporary elevation in blood glucose levels for a few days and to monitor his readings closely. Plan Consent The risks, benefits, and alternatives of a right knee cortisone injection were discussed with the patient. The primary benefit discussed was potential relief from pain and inflammation. A specific risk reviewed was the potential for temporary elevation of blood glucose levels, given his diagnosis of diabetes. Alternatives, including continuing with oral anti-inflammatories, physical therapy, and observation, were implicitly discussed as part of the conservative management plan. The patient verbalized understanding of this information and provided consent to proceed with the injection. Patient was informed and verbally consented to the use of an ambient scribe for clinic note documentation during this visit. Orders: Orders PT Evaluation and Treatment Today M17.11 - Unilateral primary osteoarthritis, right knee XR knee standing BI Today M25.561 - Pain in right knee, M25.562 - Pain in left knee Coding Level of Care Code New Pt Level 3 (48849) Add On Problem Visit Only Diagnoses Primary osteoarthritis of right knee M17.11 Osteoarthritis type: primary Diabetes mellitus E11.9 CPT Codes Coding - Joint 7: 28686 - Glenohumeral/Tronchanteric Bursa/Intraarticular ([id number])
[2025-09-05 08:38] VITALS: BMI 47.0
== END 2025-09-05 09:23 | disposition home or self-care (01) ==
LOC: HO.HOS 08:21
PROVIDERS: PCP Physician Assistant Medical; Visit Provider Physician Assistant
DX: M17.11 Unilateral primary osteoarthritis, right knee (principal); E11.9 Type 2 diabetes mellitus without complications
CPT/HCPCS: 20610; 99203

== ENCOUNTER 2025-09-05 08:24 | Outpatient (REF) | payer OTHER, SELFPAY ==
--- NOTE | ~2025-09-05 | XR_ITS ---
EXAMINATION: XR KNEE AP STANDING CLINICAL INFORMATION: M25.561 - Pain in right knee COMPARISON: X-ray 05/28/2025 TECHNIQUE: AP bilateral standing view of the knees was obtained. FINDINGS: Right knee: Single frontal view. Mild lateral compartment arthritis. Tiny marginal medial tibial spurring. No acute findings. Left knee: No acute findings. Joint space is maintained. XR/XR knee standing BI IMPRESSION: Right knee: Mild arthritis Electronically signed by: Andrae Veronica MD 09/05/2025 02:30 PM EST
--- OUTSIDE RECORDS SUMMARY | 2025-09-06 08:47 | XMS_ITS | Clinical Summary ---
Author Organization [facility] [address] [facility] Address [address] [place] [address] Phone Care Team Providers Care Timber Inspector Name Role Phone Saw Gonzales MD Primary Care Provider [phone] Allergies Active Allergy Reactions Criticality Noted Date [...] needle, diabetic (ULTRA-THIN II INS PEN NEEDLES [facility] [place] [facility]) Active ibuprofen (ADVIL,MOTRIN) 400 [...] Maintenance Results * COLONOSCOPY Anesthesia - MAC; [facility] ENDOSCOPY (04/21/2025 9:12 AM EDT) Anatomical Region Laterality Modality Other 04/21/2025 8:47 AM EDT Impressions 04/21/2025 9:14 AM EDT - Internal hemorrhoids. - No specimens collected. Recommendation: - Repeat colonoscopy in 10 years for screening purposes. - Use fiber, for example Citrucel, Fibercon, Konsyl or Metamucil. Narrative 04/21/2025 9:14 AM EDT [facility] Patient Name: Timmy Stuart [...] criteria for high risk CPT copyright 2020 [employer]. All rights reserved. The codes documented in this report are preliminary and upon label coder review may be revised to meet current compliance requirements. Nitish Arias MD 04/21/2025 9:14:03 AM This report has been signed electronically.Nitish Arias MD Number of Addenda: 0 Note Initiated On: 04/21/2025 8:47 AM Scope In: Scope Out: Endoscopy Department at [facility] - [address] [place] [id number] Procedure Note Nitish Arias MD - 04/21/2025 [facility] Patient Name: Timmy Stuart [...] criteria for high risk CPT copyright 2020 [employer]. All rights reserved. The codes documented in this report are preliminary and upon label coder reviewmay be revised to meet current compliance requirements. Nitish Arias MD 04/21/2025 9:14:03 AM This report has been signed electronically.Nitish Arias MD Number of Addenda: 0 Note Initiated On: 04/21/2025 8:47 AM Scope In: Scope Out: Endoscopy Department at [address] [phone] IMPRESSION: - Internal hemorrhoids. - No specimens collected. Recommendation: - Repeat colonoscopy in 10 years for screening purposes. - Use fiber, for example Citrucel, Fibercon, Konsylor Metamucil. us Nitish Arias MD GI~PROCEDURE ORDERABLES Final Re sult from Last 3 Months or Most Recently Relevant to Health Maintenance Insurance [employer] [id number] Care Teams Timber Inspector Relationship Specialty Start Date End Date Saw Gonzales MD [address] [place] [address] PCP - General Internal Medicine 01/06/25
--- OUTSIDE RECORDS SUMMARY | 2025-09-06 08:47 | XMS_ITS | Clinical Summary ---
Author Organization [facility] Address [address] [facility] [address] [place] [phone] Phone Care Team Providers Care Wellness Program Manager Name Role Phone Staci Garcia Primary [...] before today's visit. He also created his [employer] account as well. 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 We then shut down the spa manager/esthetician. He then downloaded the omnipod 5 harper [...] this help. He will set up his [email or web address] account information and omnipod account information before [...] Will look into getting his records from [facility] from 2011 to see if it [...] is glucose levels. Up to date with [facility]. He has been having an issue [...] is glucose levels. Up to date with [facility]. Will do lab with PCP at [...] with ophtho. Had blood work done at [facility] will call to get results Assessment & [...] and being active. Up to date with [facility]. Labs ordered today. 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 Discussed has he taken a look at the clinic in [place]. He didn't realize there was a clinic there. I will send him the clinic information through the gateway and he will look into this Encounters Date Type Department Care Team Description 08/26/2025 Refill [facility] [address] [place] [address] Zaira Davies PA-C Medication Refill 08/02/2025 Telephone [facility] [address] [place] [address] Izabela BruceALBION, [place] Labs 07/22/2025 8:00 AM EDT Office Visit [facility] [address] [place] [address] Zaira Davies PA-C Type 2 diabetes mellitus with hyperglycemia, with long-term current use of insulin (Primary Dx); Insulin pump in place 06/29/2025 12:30 PM EDT Office Visit [facility] [address] [place] [address] Zaira Davies PA-C Type 2 diabetes mellitus [...] AM EDT Office Visit [facility] [address] [place] [address] Lupe Hooks MD [address] [place] [address] 03/01/2026 8:00 AM EDT Office Visit [facility] [address] [place] [address] Zaira Davies PA-C [address] [place] [id number] Health Maintenance Due Date Last Done Comments [...] Relevant to Health Maintenance Insurance [place] [place] [address] [place] [address] [facility]ICE [facility] [place] [place] [address] CHOICE [facility] CHOICE Care Teams Wellness Program Manager Relationship Specialty Start Date End Date Staci Garcia PA [address] [place] [address] [place] [address] PCP - General Physician Human Services Instructor 05/24/25 Additional Source Comments The information contained in this document represents components of the legal health record. It is not the complete legal health record.[facility]
== END 2025-09-05 08:25 | disposition home or self-care (01) ==
LOC: HO.HOSX 08:24
PROVIDERS: Visit Provider Physician Assistant
DX: M17.11 Unilateral primary osteoarthritis, right knee (principal); E11.9 Type 2 diabetes mellitus without complications; M25.562 Pain in left knee; Z79.4 Long term (current) use of insulin; Z79.84 Long term (current) use of oral hypoglycemic drugs
CPT/HCPCS: 20610; 73565; J0665; J1100; J2003

== ENCOUNTER → 2025-09-05 08:24 | Outpatient (BNV) | payer OTHER, SELFPAY | PROVIDERS: Visit Provider Radiology Diagnostic Ultrasound | DX: M17.11 Unilateral primary osteoarthritis, right knee (principal) | CPT/HCPCS: 73565 ==